=== PATIENT | male | born 1975 | race American Indian/Alaskan Native ===

== ENCOUNTER 2018-05-25 14:39 | Inpatient (IN) | payer SELFPAY ==
[2018-05-25 16:29] LABS: Hemoglobin 16.7 gm/dl (11.8-15.2); Mean Corpuscular HGB Conc 35 % (32-34); Mean Corpuscular Volume 90 fl (84-94); Platelet Count 445 K/mm3 (140-440); Red Blood Count 5.33 M/mm3 (3.65-5.03); Red Cell Distribution Width 16.3 % (13.2-15.2)
[2018-05-25 17:17] LABS: Alanine Aminotransferase 19 units/L (7-56); Albumin 4.4 g/dL (3.9-5); BUN/Creatinine Ratio 16; Blood Urea Nitrogen 16 mg/dL (9-20); Hemolysis Index 50
[2018-05-25] MEDS ORDERED: NACL 0.9% 1000 ML 1,000 ML IV ONE ×2 (19:27→23:36)
--- NOTE | 2018-05-25 19:29 | Emergency Department Report ---
<ADIEL QUEEN - Last Filed: 05/25/18 19:25> ED Abdominal Pain HPI - General Chief Complaint: Abdominal Pain Stated Complaint: STOMACH PAIN Time Seen by Provider: 05/25/18 18:17 Source: patient, EMS Mode of arrival: Wheelchair Limitations: No Limitations - History of Present Illness Initial Comments: 42-year-old male since emerge department complaining she generalized abdominal pain that has been off and on for the last one month but worse for the past 3 days. Reports nausea and vomiting for the last 2 days and reports no bowel movement in last 2-2 half days. Has noticed some some bloating but has been passing gas in the form of fluctuance and also belching. Reports no diarrhea. Tried to take some Maxifed, [id number], but still no bowel movement. No fever, chills, sweats, chest pain, palpitations. Reports no dysuria or abdomen, trauma. No pre-existing Topher or the medical problems to his knowledge. MD Complaint: abdominal pain Location: diffuse Radiation: RUQ, LLQ Severity: moderate Quality: aching Improves With: nothing Worsens With: nothing Associated Symptoms: nausea, constipation. denies: diarrhea, fever, chills, dysuria, hematemesis, hematochezia, melena, hematuria, anorexia - Related Data Allergies Allergy/AdvReac Type Severity Reaction Status Date / Time shellfish derived Allergy Anaphylaxis Verified 05/25/18 15:08 ED Review of Systems Constitutional: denies: chills, fever Eyes: denies: eye pain, eye discharge, vision change ENT: denies: ear pain, throat pain Respiratory: denies: cough, shortness of breath, wheezing Cardiovascular: denies: chest pain, palpitations Endocrine: no symptoms reported Gastrointestinal: abdominal pain, nausea, vomiting, constipation. denies: diarrhea, hematemesis, melena, hematochezia Genitourinary: denies: urgency, dysuria Musculoskeletal: denies: back pain, joint swelling, arthralgia Skin: denies: rash, lesions Neurological: denies: headache, weakness, paresthesias Psychiatric: denies: anxiety, depression Hematological/Lymphatic: denies: easy bleeding, easy bruising ED Past Medical Hx - Past Medical History Previous Medical History?: No - Surgical History Past Surgical History?: No - Social History Smoking Status: Former Smoker ED Physical Exam - General Limitations: No Limitations General appearance: alert, in no apparent distress - Head Head exam: Present: atraumatic, normocephalic - Eye Eye exam: Present: normal appearance, PERRL, EOMI Pupils: Present: normal accommodation - ENT ENT exam: Present: normal exam, mucous membranes moist - Neck Neck exam: Present: normal inspection - Respiratory Respiratory exam: Present: normal lung sounds bilaterally. Absent: respiratory distress, wheezes, rales, rhonchi, decreased breath sounds - Cardiovascular Cardiovascular Exam: Present: regular rate, normal rhythm. Absent: systolic m urmur, diastolic murmur, rubs, gallop - GI/Abdominal GI/Abdominal exam: Present: soft, normal bowel sounds - Rectal Rectal exam: Present: deferred - Extremities Exam Extremities exam: Present: normal inspection - Back Exam Back exam: Present: normal inspection, full ROM. Absent: CVA tenderness (R), CVA tenderness (L) - Neurological Exam Neurological exam: Present: alert, oriented X3, CN II-XII intact. Absent: normal gait - Psychiatric Psychiatric exam: Present: normal affect, normal mood - Skin Skin exam: Present: warm, dry, intact, normal color. Absent: rash ED Medical Decision Making - Lab Data Result diagrams: 05/25/18 16:19 05/25/18 16:19 ED Disposition Clinical Impression: Bowel obstruction, Abdominal pain, Nausea and vomiting Disposition: OP ADMIT IP TO THIS HOSP Condition: Stable <DEBRA SORIA - Last Filed: 05/26/18 00:32> ED Review of Systems ROS: Stated complaint: STOMACH PAIN Other details as noted in HPI ED Course Vital Signs 05/25/18 15:05 Temperature 97.9 F Pulse Rate 101 H Respiratory 20 Rate Blood Pressure 126/90 O2 Sat by Pulse 99 Oximetry - Reevaluation(s) Reevaluation #1: 05/26/18 00:30 I examined the patient. Patient presented with abdominal pain, nausea and vomiting. Patient also added that he's been having weight loss of approximately 20 pounds in the last 1 month's. He also stated that his been having alt ernating diarrhea and constipation. Patient already been discussed with Dr. Andre from surgery and Dr. Schultz from the medical team for admission. Patient has an NG tube placed. Patient stated that he is feeling better from the nausea and vomiting after the NG tube. We'll continue to follow. ED Medical Decision Making - Lab Data Result diagrams: 05/25/18 16:19 05/25/18 16:19 Critical Care Time: Yes Critical care time in (mins) excluding proc time.: 30 Critical care attestation.: If time is entered above; I have spent that time in minutes in the direct care of this critically ill patient, excluding procedure time. ED Disposition Is pt being admited?: Yes
[2018-05-25] MEDS ORDERED: ZOFRAN ONE (20:05)
[2018-05-25] MEDS ORDERED: BENADRYL IV STA (20:14)
[2018-05-25 20:16] LABS: Bacteria,Urine 1+ /HPF (Negative); Bilirubin,Urine MOD (Negative); Blood,Urine NEG (Negative); Color,Urine Amber (Yellow); Hyaline Casts,Urine 16 /LPF; Mucus,Urine 2+ /HPF
[2018-05-25 20:25] LABS: Ictotest,Urine Positive (Negative)
--- NOTE | 2018-05-25 22:11 | Cat Scan Report ---
FINAL REPORT EXAM: CT ABD AND PELVIS W CONTRAST HISTORY: LOWER ABD PAIN TECHNIQUE: CT abdomen and pelvis with intravenous contrast PRIORS: None. FINDINGS: No acute abnormality identified in the lung bases. No focal abnormality identified within the liver parenchyma. The spleen demonstrates normal size and attenuation. No pancreatic abnormalities seen. The kidneys demonstrate symmetric contrast enhancement. No evidence of hydronephrosis. The adrenal glands are unremarkable Abdominal aorta is normal in caliber. No pathologically enlarged lymph nodes are identified. No signs of free fluid or free air There is a marked small-bowel distention with fluid-filled loops measuring up to 6 centimeters in tra nsverse diameter. Definitive point of transition not identified however appears to be distal colon li shabbir ileum. Colon is nondistended. No pericolonic inflammatory change. Urinary bladder is unremarkable. IMPRESSION: Findings consistent with high-grade small bowel obstruction. Point of obstruction appears to be dista l small bowel
[2018-05-25] MEDS ORDERED: ZOFRAN IV STA (23:16)
[2018-05-25] MEDS ORDERED: ZOSYN/NS 4.5GM/100ML 4.5 GM/100 ML VIAL IV ONE (23:36)
--- NOTE | 2018-05-25 23:42 | History and Physical Report ---
History of Present Illness Date of examination: 05/25/18 History of present illness: 42-year-old man with no medical history comes emergency room with complaints of abdominal pain. Pain is in the right lower quadrant which started 2 months ago, intermittent every 5 minutes, sharp, intensity 8/10, no radiation, Marino identify exacerbating factors, better with pain medication given in the emergency room. Admits to nausea vomiting, no bowel movements Review of systems Constitutional: no weight loss, chills, fever Ears, eyes, nose, mouth and throat: no nasal congestion, no nasal discharge, no sinus pressure, no vision change, no red eye. Neck: No neck pain or rigidity. Cardiovascular: no palpitations, chest pain Respiratory: no cough, shortness of breath Gastrointestinal: no hematochezia Genitourinary : no frequency , no hematuria Musculoskeletal: no joint swelling or muscle ache Integumentary: no rash, no pruritis Neurological: no parathesias, no focal weakness Endocrine: no cold or heat intolerance, no polyuria or polydipsia Hematologic/Lymphatic: no easy bruising, no easy bleeding, no gland swelling Allergic/Immunologic: no urticaria, no angioedema. PAST MEDICAL HISTORY: None PAST SURGICAL HISTORY: None SOCIAL HISTORY: + alcohol, no drugs, +tobacco FAMILY HISTORY: Hypertension Medications and Allergies Allergies Allergy/AdvReac Type Severity Reaction Status Date / Time shellfish derived Allergy Anaphylaxis Verified 05/25/18 15:08 Home Medications Medication Instructions Recorded Confirmed Last Taken Type No Known Home Medications [No 05/26/18 05/26/18 Unknown History Reported Home Medications] Active Meds: Active Medications Sodium Chloride (Nacl 0.9% 1000 Ml) 1,000 mls @ 999 mls/hr IV BOLUS ONE Stop: 05/26/18 00:36 Piperacillin Sod/Tazobactam Sod (Zosyn/Ns 4.5gm/100ml) 4.5 gm in 100 mls @ 200 mls/hr IV ONCE ONE Stop: 05/26/18 00:05 Exam - Physical Exam Narrative exam: General Apperance: The patient lying in bed, breathing comfortable HEENT: Normocephalic, atraumatic. Pupils equally round and reactive to light, EOMI, no sclericterus or JVD or thyromegaly or nodule. , no carotid bruit, mucous membranes moist, no exudate or erythema Heart: S1-S2, regular is rhythm Lungs: Clear to auscultation bilaterally, breathing comfortable Abdomen: Positive bowel sounds, soft, tender right lower quadrant, no rebound, guarding nondistended, no organomegaly Extremities: No edema cyanosis clubbing Skin: no rash, nodule, warm and dry Neuro: cranial nerves 2-12 intact, speech is fluent, motor/sensory intact - Constitutional Vitals: Temp Pulse Resp BP Pulse Ox 97.9 F 101 H 20 126/90 99 05/25/18 15:05 05/25/18 15:05 05/25/18 15:05 05/25/18 15:05 05/25/18 15:05 Results - Labs CBC & Chem 7: 05/25/18 16:19 05/25/18 16:19 Labs: Abnormal lab results 05/25/18 05/25/18 Range/Units 16:19 16:19 WBC 15.2 H (4.5-11.0) K/mm3 RBC 5.33 H (3.65-5.03) M/mm3 Hgb 16.7 H (11.8-15.2) gm/dl Hct 48.0 H (35.5-45.6) % MCHC 35 H (32-34) % RDW 16.3 H (13.2-15.2) % Plt Count 445 H (140-440) K/mm3 Sodium 135 L (137-145) mmol/L Chloride 88.9 L (98-107) mmol/L Glucose 131 H (75-100) mg/dL Total Protein 9.2 H (6.3-8.2) g/dL Lipase 7 L (13-60) units/L - Imaging and Cardiology CT scan - abdomen: report reviewed CT scan - pelvis: report reviewed Assessment and Plan Assessment High-grade small bowel obstruction Plan Admit to medicine Start IV fluid, bowel rest, place ngt Start IV Zosyn, consult surgery IV morphine, DVT prophylaxis
[2018-05-25] MEDS ORDERED: TYLENOL PO PRN (23:52)
[2018-05-25] MEDS ORDERED: MORPHINE IV PRN (23:52)
[2018-05-26] MEDS ORDERED: ZOFRAN ONE ×3 (00:03→12:22)
[2018-05-26] MEDS ORDERED: NACL 0.9% 1000 ML 1,000 ML ONE (00:34)
[2018-05-26] MEDS ORDERED: ZOSYN/NS 4.5GM/100ML 4.5 GM/100 ML VIAL IV ONE (00:34)
--- NOTE | 2018-05-26 01:03 | XRay Report ---
FINAL REPORT EXAM: XR ABDOMEN 1V AP HISTORY: Confirm NGT placement COMPARISON: CT abdomen and pelvis from yesterday. FINDINGS: AP view of the upper abdomen obtained. Distal tip of the NG tube projects over the mid stomach. Gaseo us distention of bowel loops in the upper abdomen. IMPRESSION: Distal tip of the NG tube projects over the mid stomach.
[2018-05-26] MEDS: ZOFRAN IV PRN ×2 (01:53→21:05)
[2018-05-26] MEDS: NACL 0.9% 1000 ML 1,000 ML IV SCH ×2 (02:03→18:30)
[2018-05-26] MEDS: ZOSYN/NS 4.5GM/100ML 4.5 GM/100 ML VIAL IV SCH ×3 (07:25→21:08)
[2018-05-26] MEDS ORDERED: NACL 0.9% 1000 ML 1,000 ML IV SCH (08:00)
--- NOTE | 2018-05-26 08:47 | Consultation ---
History of Present Illness Consult date: 05/26/18 Reason for consult: abdominal pain Requesting physician: ESME COTTON Chief complaint: abdominal pain - History of present illness History of present illness: 42yo, otherwise healthy, male presents with a 2 day history of no bowel movements and significant abdominal pain. He reports that he began having issues about 2 months ago. His bowel movements began to change to a more watery consistency. He has lost 20 to 25 pounds during this time. He is developed nausea and vomiting. Appetite is decreased. He denies any history of abdominal infections or surgeries. Denies any blood in stools. May have had one black stool. Denies any personal or family history of cancer. Past History Past Medical History: No medical history Past Surgical History: No surgical history Social history: smoking (1pk QOD), alcohol abuse (2-3 shots QOD). denies: prescription drug abuse, IV drug use Family history: no significant family history Medications and Allergies Allergies Allergy/AdvReac Type Severity Reaction Status Date / Time shellfish derived Allergy Anaphylaxis Verified 05/25/18 15:08 Home Medications Medication Instructions Recorded Confirmed Last Taken Type RX: No Known Home Medications [No 05/26/18 05/26/18 Unknown History Reported Home Medications] Active Meds: Active Medications Acetaminophen (Tylenol) 650 mg PO Q4H PRN PRN Reason: Pain MILD(1-3)/Fever >100.5/HINSON Enoxaparin Sodium (Lovenox) 40 mg SUB-Q QDAY@1000 KARSON Sodium Chloride (Nacl 0.9% 1000 Ml) 1,000 mls @ 125 mls/hr IV DIRECT KARSON Last Admin: 05/26/18 02:03 Dose: 125 mls/hr Documented by: Piperacillin Sod/Tazobactam Sod (Zosyn/Ns 4.5gm/100ml) 4.5 gm in 100 mls @ 200 mls/hr IV Q8HR KARSON; Protocol Last Admin: 05/26/18 07:25 Dose: 200 mls/hr Documented by: Sodium Chloride (Nacl 0.9% 1000 Ml) 1,000 mls @ 0 mls/hr IV ONCE KARSON Stop: 05/27/18 08:01 Morphine Sulfate (Morphine) 2 mg IV Q4H PRN PRN Reason: Pain, Moderate (4-6) Last Admin: 05/26/18 01:53 Dose: 2 mg Documented by: Ondansetron HCl (Zofran) 4 mg IV Q4H PRN PRN Reason: Nausea And Vomiting Last Admin: 05/26/18 01:53 Dose: 4 mg Documented by: Sodium Chloride (Sodium Chloride Flush Syringe 10 Ml) 10 ml IV BID KARSON Sodium Chloride (Sodium Chloride Flush Syringe 10 Ml) 10 ml IV PRN PRN PRN Reason: LINE FLUSH Review of Systems - Constitutional weight loss, chronic pain, no fever, no chills - Cardiovascular no chest pain - Respiratory no cough, no shortness of breath - Gastrointestinal abdominal pain, nausea, vomiting, change in bowel habits, loss of appetite, dyspepsia/bloating, no hematemesis, no coffee ground emesis, no BRBPR, no melena, no hematochezia - Genitourinary no dysuria - Muskuloskeletal no low back pain - Integumentary no rash, no sores, no wounds Exam Vital Signs Temp Pulse Resp BP Pulse Ox 97.9 F 101 H 20 126/90 99 05/25/18 15:05 05/25/18 15:05 05/25/18 15:05 05/25/18 15:05 05/25/18 15:05 - General physical appearance Positive: no distress, no pain, other (pleasant) - Eyes Positive: PERRL, normal occular movement. Negative: icteric - Respiratory Positive: normal expansion, normal respiratory effort, clear to auscultation - Cardiovascular Rhythm: regular - Abdomen Abdomen: Present: soft, bowel sounds hypoactive, distended. Absent: tender, masses, rebound, guarding, rigid, wound, surgical scars - Integumentary no rash, no growths, no abnormal pigmentation - Neurologic Neurologic: alert and oriented to time, place and person, motor strength and sensation are grossly intact - Musculoskeletal other (thin extremities) - Psychiatric Psychiatric: appropriate mood/affect, intact judgment & insight Results - Labs 05/25/18 16:19 05/25/18 16:19 Abnormal lab results 05/25/18 05/25/18 Range/Units 16:19 16:19 WBC 15.2 H (4.5-11.0) K/mm3 RBC 5.33 H (3.65-5.03) M/mm3 Hgb 16.7 H (11.8-15.2) gm/dl Hct 48.0 H (35.5-45.6) % MCHC 35 H (32-34) % RDW 16.3 H (13.2-15.2) % Plt Count 445 H (140-440) K/mm3 Sodium 135 L (137-145) mmol/L Chloride 88.9 L (98-107) mmol/L Glucose 131 H (75-100) mg/dL Total Protein 9.2 H (6.3-8.2) g/dL Lipase 7 L (13-60) units/L Diabetes panel 05/25/18 Range/Units 16:19 Sodium 135 L (137-145) mmol/L Potassium 3.8 (3.6-5.0) mmol/L Chloride 88.9 L (98-107) mmol/L Carbon Dioxide 29 (22-30) mmol/L BUN 16 (9-20) mg/dL Creatinine 1.0 (0.8-1.5) mg/dL Glucose 131 H (75-100) mg/dL Calcium 10.0 (8.4-10.2) mg/dL AST 20 (5-40) units/L ALT 19 (7-56) units/L Alkaline Phosphatase 107 (35-129) units/L Total Protein 9.2 H (6.3-8.2) g/dL Albumin 4.4 (3.9-5) g/dL Calcium panel 05/25/18 Range/Units 16:19 Calcium 10.0 (8.4-10.2) mg/dL Albumin 4.4 (3.9-5) g/dL Pituitary panel 05/25/18 Range/Units 16:19 Sodium 135 L (137-145) mmol/L Potassium 3.8 (3.6-5.0) mmol/L Chloride 88.9 L (98-107) mmol/L Carbon Dioxide 29 (22-30) mmol/L BUN 16 (9-20) mg/dL Creatinine 1.0 (0.8-1.5) mg/dL Glucose 131 H (75-100) mg/dL Calcium 10.0 (8.4-10.2) mg/dL Adrenal panel 05/25/18 Range/Units 16:19 Sodium 135 L (137-145) mmol/L Potassium 3.8 (3.6-5.0) mmol/L Chloride 88.9 L (98-107) mmol/L Carbon Dioxide 29 (22-30) mmol/L BUN 16 (9-20) mg/dL Creatinine 1.0 (0.8-1.5) mg/dL Glucose 131 H (75-100) mg/dL Calcium 10.0 (8.4-10.2) mg/dL Total Bilirubin 0.80 (0.1-1.2) mg/dL AST 20 (5-40) units/L ALT 19 (7-56) units/L Alkaline Phosphatase 107 (35-129) units/L Total Protein 9.2 H (6.3-8.2) g/dL Albumin 4.4 (3.9-5) g/dL - Imaging CT scan - abdomen: report reviewed, image reviewed CT scan - pelvis: report reviewed, image reviewed Assessment and Plan - Patient Problems (1) Bowel obstruction Current Visit: Yes Status: Acute Qualifiers: Intestinal obstruction type: other intestinal obstruction Intestinal obstruction extent: partial Qualified Code(s): K56.690 - Other partial intestinal obstruction Plan to address problem: Patient is stable. Despite the CT not showing any specific cause for an obstru ction, his history is very concerning for a malignancy causing this problem. I believe his only viable option at this point is an exploratory laparotomy. Patient would like to proceed. Procedure, risks, benefits were discussed. All questions were answered. Consent was obtained. We will proceed to surgery today. time=30min
[2018-05-26] MEDS ORDERED: DIPRIVAN 10 MG/ML IV ONE (09:15)
[2018-05-26] MEDS ORDERED: SUBLIMAZE ONE (09:15)
[2018-05-26] MEDS ORDERED: XYLOCAINE MPF 2% ONE (09:16)
[2018-05-26] MEDS ORDERED: ZEMURON IV ONE (09:17)
[2018-05-26] MEDS ORDERED: QUELICIN ONE (09:22)
--- NOTE | 2018-05-26 09:27 | Progress Note ---
Assessment and Plan Assessment and plan: per admission documentation: 42-year-old man with no medical history comes emergency room with complaints of abdominal pain. Pain is in the right lower quadrant which started 2 months ago, intermittent every 5 minutes, sharp, intensity 8/10, no radiation, he reports some bloating but has fluctuance and also belching. He reported assocaited nausea and vomiting in the last two days but no BM for the last 2 and half days Cannot identify exacerbating factors, better with pain medication given in the emergency room. Admits to nausea vomiting, no bowel movements SBO SECONDary to Tumor Leukocytosis- possible reactive. Peritoneal Irritation. Mass. Plan Patient proceeded for surgery today noted to have a tumor causing obstruction S/P ex lap, right hemicolectomy with primary anastomosis, partial omentectomy, partial sigmoid colectomy Pathology pending. Pain control DVT/GI prophy Discussed plan of care with family and patient. History Interval history: Patient seen and examined, for surgery this am. Hospitalist Physical - Physical exam Narrative exam: General Apperance: The patient lying in bed, HEENT: Normocephalic, atraumatic. Pupils equally round and reactive to light, EOMI, no sclericterus or JVD or thyromegaly or nodule. , no carotid bruit, mucous membranes moist, no exudate or erythema Heart: S1-S2, regular is rhythm Lungs: Clear to auscultation bilaterally, breathing comfortable Abdomen: Positive bowel sounds, soft, tender right lower quadrant, no rebound, g uarding nondistended, no organomegaly Extremities: No edema cyanosis clubbing Skin: no rash, nodule, warm and dry Neuro: cranial nerves 2-12 intact, speech is fluent, motor/sensory intact - Constitutional Vitals: Temp Pulse Resp BP Pulse Ox 98.0 F 92 H 18 118/85 96 05/26/18 06:57 05/26/18 06:57 05/26/18 06:57 05/26/18 06:57 05/26/18 08:21 Results - Labs CBC & Chem 7: 05/26/18 15:32 05/26/18 15:32 Labs: Laboratory Last Values WBC 15.2 K/mm3 (4.5-11.0) H 05/25/18 16:19 RBC 5.33 M/mm3 (3.65-5.03) H 05/25/18 16:19 Hgb 16.7 gm/dl (11.8-15.2) H 05/25/18 16:19 Hct 48.0 % (35.5-45.6) H 05/25/18 16:19 MCV 90 fl (84-94) 05/25/18 16:19 MCH 31 pg (28-32) 05/25/18 16:19 MCHC 35 % (32-34) H 05/25/18 16:19 RDW 16.3 % (13.2-15.2) H 05/25/18 16:19 Plt Count 445 K/mm3 (140-440) H 05/25/18 16:19 Sodium 135 mmol/L (137-145) L 05/25/18 16:19 Potassium 3.8 mmol/L (3.6-5.0) 05/25/18 16:19 Chloride 88.9 mmol/L (98-107) L 05/25/18 16:19 Carbon Dioxide 29 mmol/L (22-30) 05/25/18 16:19 Anion Gap 21 mmol/L 05/25/18 16:19 BUN 16 mg/dL (9-20) 05/25/18 16:19 Creatinine 1.0 mg/dL (0.8-1.5) 05/25/18 16:19 Estimated GFR > 60 ml/min 05/25/18 16:19 BUN/Creatinine Ratio 16 % 05/25/18 16:19 Glucose 131 mg/dL (75-100) H 05/25/18 16:19 Calcium 10.0 mg/dL (8.4-10.2) 05/25/18 16:19 Total Bilirubin 0.80 mg/dL (0.1-1.2) 05/25/18 16:19 AST 20 units/L (5-40) 05/25/18 16:19 ALT 19 units/L (7-56) 05/25/18 16:19 Alkaline Phosphatase 107 units/L (35-129) 05/25/18 16:19 Total Protein 9.2 g/dL (6.3-8.2) H 05/25/18 16:19 Albumin 4.4 g/dL (3.9-5) 05/25/18 16:19 Albumin/Globulin Ratio 0.9 % 05/25/18 16:19 Lipase 7 units/L (13-60) L 05/25/18 16:19 Urine Color Mary (Yellow) 05/25/18 19:51 Urine Turbidity Clear (Clear) 05/25/18 19:51 Urine pH 5.0 (5.0-7.0) 05/25/18 19:51 Ur Specific [place] 1.030 (1.003-1.030) 05/25/18 19:51 Urine Protein 100 mg/dl mg/dL (Negative) 05/25/18 19:51 Urine Glucose (UA) Neg mg/dL (Negative) 05/25/18 19:51 Urine Ketones 80 mg/dL (Negative) 05/25/18 19:51 Urine Blood Neg (Negative) 05/25/18 19:51 Urine Nitrite Neg (Negative) 05/25/18 19:51 Urine Bilirubin Mod (Negative) 05/25/18 19:51 Urine Ictotest Positive (Negative) 05/25/18 19:51 Urine Urobilinogen 2.0 mg/dL (<2.0) 05/25/18 19:51 Ur Leukocyte Esterase Neg (Negative) 05/25/18 19:51 Urine WBC (Auto) 2.0 /HPF (0.0-6.0) 05/25/18 19:51 Urine RBC (Auto) 6.0 /HPF (0.0-6.0) 05/25/18 19:51 U Epithel Cells (Auto) < 1.0 /HPF (0-13.0) 05/25/18 19:51 Urine Bacteria (Auto) 1+ /HPF (Negative) 05/25/18 19:51 Hyaline Casts 16 /LPF 05/25/18 19:51 Urine Mucus 2+ /HPF 05/25/18 19:51
[2018-05-26] MEDS: SODIUM CHLORIDE FLUSH SYRINGE 10 ML IV SCH ×2 (09:29→21:08)
--- NOTE | 2018-05-26 09:43 | XRay Report ---
ABDOMEN, 2 views: History: Constipation, abdominal pain. Compared to the CT of abdomen and pelvis performed 05/25/18. A nasogastric tube projects over the expected position of the stomach. Multiple dilated loops of small bowel with large air-fluid levels are again identified concerning for a distal small bowel obstruction. Trace gas is identified in the colon. No obvious free air or pathologic calcifications. The lung bases are clear. IMPRESSION: Distal small bowel obstruction. No significant change since yesterday's exam.
--- NOTE | 2018-05-26 09:44 | XRay Report ---
ROUTINE CHEST, TWO VIEWS: HISTORY: Evaluate for metastasis from presumed GI cancer. The trachea, heart, mediastinal contour, lung rojas and bony thorax are unremarkable. A nasogastric tube is in position. IMPRESSION: Unremarkable chest x-ray.
[2018-05-26] MEDS ORDERED: NEO SYNEPHRINE/NS Syringe(OR USE) IV ONE (09:49)
[2018-05-26] MEDS ORDERED: DECADRON ONE (09:50)
[2018-05-26] MEDS ORDERED: LOVENOX SUB-Q SCH (10:00)
[2018-05-26] MEDS ORDERED: DILAUDID IV PRN (10:04)
--- NOTE | 2018-05-26 10:04 | Anesthesia Consultation ---
Anesthesia Consult and Med Hx Date of service: 05/26/18 - Airway Anesthetic Teeth Evaluation: Good ROM Head & Neck: Adequate Mental/Hyoid Distance: Adequate Mallampati Class: Class II Intubation Access Assessment: Probably Good - Pulmonary Exam CTA: Yes - Cardiac Exam Cardiac Exam: RRR - Pre-Operative Health Status ASA Pre-Surgery Classification: ASA3, Emergency Proposed Anesthetic Plan: General - Pulmonary Hx Smoking: Yes Hx Asthma: No Hx Respiratory Symptoms: No COPD: No - Cardiovascular System Hx Hypertension: No Hx Heart Attack/AMI: No - Central Nervous System Hx Seizures: No CVA: No - Gastrointestinal Hx Gastroesophageal Reflux Disease: Yes - Endocrine Hx Renal Disease: No Hx Liver Disease: No Hx Insulin Dependent Diabetes: No Hx Non-Insulin Dependent Diabetes: No Hx Thyroid Disease: No - Hematic Hx Anemia: No - Other Systems Hx Obesity: No - Additional Comments Anesthesia Medical History Comments: Presented with abdominal pain, nausea, vomiting x2 days. SBO noted on CT. Now scheduled for emergent ex-lap. HD stable on floor. No significant metabolic derrangement. NGT in place with bilious drainage. Plan GETA/RSI. Possible post-op ventilation/ICU admission pending intraoperative course.
--- NOTE | 2018-05-26 10:04 | Anesthesia Day of Surgery ---
Anesthesia Day of Surgery - Day of Surgery Patient Examined: Yes Patient H&P Reviewed: Yes Patient is NPO: Yes (SBO with NGT in situ)
[2018-05-26] MEDS ORDERED: ANCEF ONE ×2 (10:05)
[2018-05-26] MEDS: LOVENOX SUB-Q SCH (10:36)
[2018-05-26] MEDS ORDERED: NACL 0.9% IR ONE (12:00)
--- NOTE | 2018-05-26 12:33 | Post Operative Note ---
Date of procedure: 05/26/18 (Dictation: [id number]) Pre-op diagnosis: small bowel obstruction Post-op diagnosis: other (bowel obstruction due to tumor) Findings: significant small bowel obstruction throughout. hard mass noted at ileocecal valve. Procedure: ex lap right hemicolectomy with primary anastomosis partial omentectomy partial sigmoid colectomy Anesthesia: GETA Surgeon: LEE WATT Services Rep: KATARINA LIRIANO Estimated blood loss: other (200cc) Pathology: list (right colon, portion of omentum, portion of sigmoid colon, portion of ileum.) Specimen disposition: to lab Condition: stable Disposition: PACU
[2018-05-26] MEDS ORDERED: DILAUDID ONE (12:55)
[2018-05-26] MEDS ORDERED: LACTATED RINGERS 1,000 ML ONE (13:21)
[2018-05-26] MEDS: MORPHINE IV PRN ×4 (14:08→23:58)
[2018-05-26] MEDS: CHLORASEPTIC MM PRN (14:11)
--- NOTE | 2018-05-26 14:36 | Post Anesthesia Evaluation ---
- Post Anesthesia Evaluation Patient Participated: Yes Airway Patent: Yes Stable Respiratory Function: Yes Nausea/Vomiting: No Temp > 96.8F: Yes Pain Manageable: Yes Adequeate Hydration: Yes Anesthesia Complications: No Block Receding Appropriately: Not Applicable
[2018-05-26 15:47] LABS: Hemoglobin 15.2 gm/dl (11.8-15.2); Mean Corpuscular HGB Conc 32 % (32-34); Mean Corpuscular Volume 94 fl (84-94); Platelet Count 369 K/mm3 (140-440); Red Blood Count 5.02 M/mm3 (3.65-5.03); Red Cell Distribution Width 16.7 % (13.2-15.2)
[2018-05-26] MEDS ORDERED: NACL 0.9% 1000 ML 1,000 ML IV ONE (15:51)
[2018-05-26 15:58] LABS: BUN/Creatinine Ratio 17; Blood Urea Nitrogen 15 mg/dL (9-20); Hemolysis Index 11
--- NOTE | 2018-05-26 16:49 | Event Note ---
Date: 05/26/18 Routine post-op check. Pt reports that he is doing well. Has no needs. Bolus given for slightly saleem urine. VS other ok. Pt stable. CPM.
--- NOTE | 2018-05-26 17:05 | Operative Report ---
PREOPERATIVE DIAGNOSIS: Small-bowel obstruction. 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 PROCEDURE: 1. Exploratory laparotomy. 2. Right hemicolectomy with primary anastomosis. 3. Partial omentectomy. 4. Partial sigmoid resection. ATTENDING PHYSICIAN: Shantal Andre MD. SCLEROSCOPE TESTER: Dr. Gutierrez. ANESTHESIA: General. ESTIMATED BLOOD LOSS: Approximately 200 mL. FLUIDS: 2 liters crystalloid. URINE OUTPUT: 100 mL. FINDINGS: Very hard firm mass in the region of the ileocecal valve. There were dense adhesions around that area to the omentum and involving the portion of the sigmoid colon, some enlarged lymph nodes were identified in the mesentery of the small bowel and right colon. No other intra-abdominal abnormalities were identified. SPECIMEN: Right colon, portion of distal ileum, and sigmoid colon and portion of omentum. DRAINS: None. COMPLICATIONS: Stable transport to Recovery. INDICATIONS: This is a 42-year-old male, who presented with significant pain and swelling in the abdomen. CT scan showed evidence of a significant small-bowel obstruction. His history was very concerning for cancer. As a cause of the obstruction the patient says to be in need for exploratory laparotomy. Procedure, risks, benefits were explained to the patient. Risks included but were not limited to infection, bleeding, pain, injury to surrounding structures, possible need for further procedures in the future, possible ostomy, etc. The patient understood and consented. OPERATIVE NOTE: The patient was brought to the operating room and placed on table in supine position. After adequate general anesthesia was established, the patient was prepped and draped in usual sterile fashion. Antibiotics have been administered prior to the start of the case. SCDs were in place. Time-out was called. I began by making a sharp midline incision. We entered the peritoneal cavity safely. Incision was extended as necessary. We did some more inferiorly as our main problem appeared to be in the right lower quadrant. The small bowel was massively dilated. We eviscerated all small bowel to examine the surrounding organs, the small bowel itself other than being dilated appeared normal. We immediately identified a firm mass in the region of the ileocecal valve, which was the cause of our blockage. The right colon and rest of the colon were decompressed. Examination of the rest of the colon revealed no obvious masses. The sigmoid colon was attached to the mass and inflammatory reaction at the ileocecal valve, but no other masses were identified. Liver was normal. Stomach was normal. Spleen was normal. There was nothing identified in the retroperitoneum as a concern for malignancy. At this point, because the bowel was so dilated we were going to be unable to adequately do a right hemicolectomy as I felt this would be most appropriate with the mass sitting in what appeared to be the cecum or at least the ileocecal valve region. Therefore, we elected to decompress the small bowel. I elected to make a small enterotomy in the region of the small bowel that we were going to resect anyway. Pursestring suture was placed around where we are going to make the enterotomy. This was subsequently done. Please note we completely toweled off the surrounding areas, we knew that there would be some spillage. We placed a suction tip into the opening that was made and we evacuated thick yellow contents that also had debris of food in there suggested that the fluid had been sitting for a long time. We drained as much as we could; however, there was still a moderate amount of fluid left. We ended up dividing the bowel with a VIVIEN stapler using a blue load to start to be able to pack the small bowel towards the left side, so we can do the right hemicolectomy. We did use a pursestring suture to close the opening that we had made. As we still had significant distention, we thought it would be best to go ahead and open up a portion of the staple line in the portion of the small bowel that was remaining and then empty everything into a bucket, which would be easier than trying to suck it out as though the food debris was getting stuck in the suction device. Again, we took great care to toweled off everything and then drain everything in the bucket. This helped significantly to decompress the bowel. We were able to milk a large amount of contents into the bucket. We then used a 3-0 silk suture to close the opening that was made at the staple line. With moist lap sponges we packed the small bowel towards the left side of the abdomen and then proceeded with the case. We mobilized the right colon going from lateral to medial, we went along Toldt's white line to mobilize the bowel. We had a very nice clean dissection and were able to mobilize the right colon without violating the retroperitoneum. We could see the ureter through the retroperitoneal covering. It was not exposed or damaged in any way. We took down the hepatic flexure by slowly going around that area with a combination of electrocautery and the LigaSure device. Once we did as much as we could along the right side we then turned our attention to the right lower quadrant where the mass was. We had adhesions to the omentum. There was a portion of the omentum that did appear irregular. Therefore, we left about 2 inches of the omentum attached to the mass and then divided the omentum with the LigaSure device and area that appeared more normal. Then we realized at this point that a portion of the omentum and nearby bowel was adhered to the edge of the sigmoid colon. There did not appear to be any masses within the sigmoid itself; however, the edge was densely adhered. As this area was firm we thought the best thing to do at this point would be to staple off a portion of the sigmoid colon, taking great care to make sure that the lumen was still widely patent, not compromised, but we thought this would be better than simply dividing the two structures and potentially leaving some malignancy tissue behind. I think this is more likely going to be an inflammatory reactive type process as opposed to malignancy; however, we wanted to make sure that we got as much of the malignancy out as possible in case it had extended out. We decided not to do a formal sigmoid colectomy as we did not know that this was tumor end. I wanted to have the option of prepping the bowel if we were going to do that. I did not feel as though we compromised his care at all. If we do find in the pathology report that the cancer does extend to the margin of the sigmoid tissue that was resected. Then, I will talk to the patient about a formal sigmoid colectomy. Continuing on we mobilized the right colon to the midline. We had a very nice dissection plane. We then entered the lesser sac and mobilized the colon from that aspect. We identified the middle colic vessels and identified where we would divide it on the right branch. We dissected out the transverse colon at that level and divided it with a VIVIEN stapler using a blue load. We excised a portion of the associated omentum and passed it off the table. We then took down the mesentery. We clearly identified the duodenum. It was clearly away from where we were dissecting and we tried to stay as low as possible going across the mesentery with the LigaSure device where the ileocolic vessels we cauterized that area twice before dividing it. We had a very nice clean dissection. We got some enlarged lymph nodes and we were nearly on top of the retroperitoneum. Therefore, I feel as though we had a very good amount of mesentery to have enough lymph nodes for adequate evaluation. We thoroughly irrigated out the abdomen again. We had done so previously after we were done decompressing the bowel as we did have small amount of spillage as expected. I cleaned the area multiple times to make sure there was no small particulate matter left. I wanted to make sure that we cleaned at each step to minimize any risk of infection. Once the cleaning was done, we then lined up the small bowel and the remainder of the transverse colon in an isoperistaltic fashion. We lined them up with 3-0 silk sutures and then made an anastomosis with a VIVIEN stapler using a blue load. The remaining enterotomy was closed with a TA stapler. We oversewed the TA staple line with interrupted 3-0 silk sutures with Lembert style stitches. We had a large opening between the two limbs of the bowel. We discussed perhaps closing the mesenteric defect, but my concern as we were very close to where the ligament of Treitz and the duodenojejunal junction was that we may potentially compromise or injure the bowel and with a large opening it is less likely that we will have any obstruction issues. If the small bowel were to proceed through we laid the anastomosis on the right side of the abdomen as it laid very nicely there and covered it with omentum. We washed everything out again, checked for hemostasis. There were some points of bleeding on the sigmoid staple line that we oversewed with 3-0 silk and had good hemostasis. We checked the lumen again, it appeared to be widely patent after irrigation and suctioning was done, we then laid the omentum over the small bowel and closed the fascia with a running #1 looped PDS suture. Subcutaneous tissue was cleaned and skin was closed with jose. The patient tolerated procedure well. There were no complications. All counts were correct at the end of the case. JOB# [id number] ZAHEER/KELSIE DE OLIVEIRA
[2018-05-26 17:23] LABS: Basophils % (Manual) 0 % (0.0-1.8); Eosinophils % (Manual) 0 % (0.0-4.3); Total Cells Counted 100
[2018-05-26 17:24] LABS: RBC Morphology Normal
[2018-05-27] MEDS: MORPHINE IV PRN ×6 (02:41→19:58)
[2018-05-27] MEDS: ZOFRAN IV PRN ×2 (02:42→16:32)
[2018-05-27] MEDS: NACL 0.9% 1000 ML 1,000 ML IV SCH (02:59)
[2018-05-27] MEDS: SODIUM CHLORIDE FLUSH SYRINGE 10 ML IV PRN ×2 (03:05→20:05)
[2018-05-27 04:46] LABS: Hematocrit 43.1 % (35.5-45.6); Hemoglobin 14.1 gm/dl (11.8-15.2); Mean Corpuscular HGB Conc 33 % (32-34); Mean Corpuscular Volume 94 fl (84-94); Red Blood Count 4.61 M/mm3 (3.65-5.03); Red Cell Distribution Width 16.5 % (13.2-15.2)
[2018-05-27 04:47] LABS: Platelet Count 319 K/mm3 (140-440)
[2018-05-27 05:05] LABS: BUN/Creatinine Ratio 12; Blood Urea Nitrogen 13 mg/dL (9-20); Calcium 8.1 mg/dL (8.4-10.2); Hemolysis Index 2
[2018-05-27] MEDS: ZOSYN/NS 4.5GM/100ML 4.5 GM/100 ML VIAL IV SCH (06:00)
[2018-05-27] MEDS: LOVENOX SUB-Q SCH (09:37)
[2018-05-27] MEDS: SODIUM CHLORIDE FLUSH SYRINGE 10 ML IV SCH (09:37)
[2018-05-27] MEDS ORDERED: LACTATED RINGERS 1,000 ML IV ONE (10:30)
--- NOTE | 2018-05-27 10:31 | Progress Note ---
Assessment and Plan - Patient Problems (1) Bowel obstruction Current Visit: Yes Status: Acute Qualifiers: Intestinal obstruction type: other intestinal obstruction Intestinal obstruction extent: partial Qualified Code(s): K56.690 - Other partial intestinal obstruction Plan to address problem: Pt stable. s/p right hemicolectomy with primary anastomosis - 05/26/18 - POD#1. Pt doing well. No concerns at this time. - ambulate - IS - change to maintenance IVF - IVF bolus this AM - start toradol - may have ice chips sparingly Please call with questions. Subjective Date of service: 05/27/18 Patient Reports: Positive: feels better, other ("soreness" across abdomen). Negative: nausea, vomiting Objective Vital Signs - 12hr 05/27/18 05/27/18 05/27/18 00:05 00:07 01:48 Temperature Pulse Rate 102 H Respiratory 16 Rate Respiratory 16 Rate [abdomen] Blood Pressure Blood Pressure 128/84 [Right] O2 Sat by Pulse 100 99 Oximetry 05/27/18 05/27/18 05/27/18 03:09 07:35 07:41 Temperature 98.2 F 98.0 F 98.0 F Pulse Rate 97 H 77 80 Respiratory 16 10 L 10 L Rate Respiratory Rate [abdomen] Blood Pressure 119/72 Blood Pressure 120/81 119/72 [Right] O2 Sat by Pulse 100 100 100 Oximetry 05/27/18 09:38 Temperature Pulse Rate Respiratory 14 Rate Respiratory Rate [abdomen] Blood Pressure Blood Pressure [Right] O2 Sat by Pulse Oximetry - General physical appearance no distress, no pain - Eyes normal occular movement - Respiratory normal expansion, normal respiratory effort - Abdomen soft, bowel sounds hypoactive, not distended, not guarding, not rigid, other (dressing dry. NGT output bilious) - Integumentary no rash, no growths, no abnormal pigmentation - Psychiatric oriented to time, oriented to person, oriented to place, speech is normal, memory intact - Labs 05/27/18 04:20 05/27/18 04:20 Diabetes panel 05/26/18 05/27/18 Range/Units 15:32 04:20 Sodium 140 144 (137-145) mmol/L Potassium 3.7 4.4 (3.6-5.0) mmol/L Chloride 103.1 105.8 (98-107) mmol/L Carbon Dioxide 27 29 (22-30) mmol/L BUN 15 13 (9-20) mg/dL Creatinine 0.9 1.1 (0.8-1.5) mg/dL Glucose 126 H 114 H (75-100) mg/dL Calcium 8.0 L D 8.1 L (8.4-10.2) mg/dL Calcium panel 05/26/18 05/27/18 Range/Units 15:32 04:20 Calcium 8.0 L D 8.1 L (8.4-10.2) mg/dL Pituitary panel 05/26/18 05/27/18 Range/Units 15:32 04:20 Sodium 140 144 (137-145) mmol/L Potassium 3.7 4.4 (3.6-5.0) mmol/L Chloride 103.1 105.8 (98-107) mmol/L Carbon Dioxide 27 29 (22-30) mmol/L BUN 15 13 (9-20) mg/dL Creatinine 0.9 1.1 (0.8-1.5) mg/dL Glucose 126 H 114 H (75-100) mg/dL Calcium 8.0 L D 8.1 L (8.4-10.2) mg/dL Adrenal panel 05/26/18 05/27/18 Range/Units 15:32 04:20 Sodium 140 144 (137-145) mmol/L Potassium 3.7 4.4 (3.6-5.0) mmol/L Chloride 103.1 105.8 (98-107) mmol/L Carbon Dioxide 27 29 (22-30) mmol/L BUN 15 13 (9-20) mg/dL Creatinine 0.9 1.1 (0.8-1.5) mg/dL Glucose 126 H 114 H (75-100) mg/dL Calcium 8.0 L D 8.1 L (8.4-10.2) mg/dL
[2018-05-27] MEDS: TORADOL IV SCH ×2 (12:18→20:04)
[2018-05-27] MEDS: D5W/0.45% NACL/KCL 20 MEQ 20 MEQ/1,000 ML BAG IV SCH (12:24)
--- NOTE | 2018-05-27 16:35 | Progress Note ---
Assessment and Plan Assessment and plan: per admission documentation: 42-year-old man with no medical history comes emergency room with complaints of abdominal pain. Pain is in the right lower quadrant which started 2 months ago, intermittent every 5 minutes, sharp, intensity 8/10, no radiation, he reports some bloating but has fluctuance and also belching. He reported assocaited nausea and vomiting in the last two days but no BM for the last 2 and half days Cannot identify exacerbating factors, better with pain medication given in the emergency room. Admits to nausea vomiting, no bowel movements SBO Secondary to Tumor- POD #1 S/P right hemicolectomy with primary anastomosis Leukocytosis- possible reactive. Peritoneal Irritation. Mass. Plan Patient proceeded for surgery today noted to have a tumor causing obstruction S/P ex lap, right hemicolectomy with primary anastomosis, partial omentectomy, partial sigmoid colectomy Pathology pending. Toradol for pain control Incentive spirometer Pain control DVT/GI prophy Discussed plan of care with family and patient. History Interval history: Patient seen and examined, s/p surgery. Patient reports improvement with his symptom. ambulating today. Hospitalist Physical - Physical exam Narrative exam: General Appearance: The patient lying in bed, HEENT: Normocephalic, atraumatic. Pupils equally round and reactive to light, EOMI, no sclericterus or JVD or thyromegaly or nodule. no carotid bruit, mucous membranes moist, no exudate or erythema. Heart: S1-S2, regular is rhythm Lungs: Clear to auscultation bilaterally, breathing comfortable Abdomen: Tender at surgical site. Positive bowel sound. Extremities: No edema cyanosis clubbing Skin: no rash, nodule, warm and dry Neuro: cranial nerves 2-12 intact, speech is fluent, motor/sensory intact - Constitutional Vitals: Temp Pulse Resp BP Pulse Ox 97.8 F 81 18 118/70 95 05/27/18 15:59 05/27/18 15:59 05/27/18 15:59 05/27/18 15:59 05/27/18 15:59 Results - Labs CBC & Chem 7: 05/27/18 04:20 05/27/18 04:20 Labs: Laboratory Last Values WBC 14.7 K/mm3 (4.5-11.0) H 05/27/18 04:20 RBC 4.61 M/mm3 (3.65-5.03) 05/27/18 04:20 Hgb 14.1 gm/dl (11.8-15.2) 05/27/18 04:20 Hct 43.1 % (35.5-45.6) 05/27/18 04:20 MCV 94 fl (84-94) 05/27/18 04:20 MCH 31 pg (28-32) 05/27/18 04:20 MCHC 33 % (32-34) 05/27/18 04:20 RDW 16.5 % (13.2-15.2) H 05/27/18 04:20 Plt Count 319 K/mm3 (140-440) 05/27/18 04:20 Add Manual Diff Complete 05/26/18 15:32 Total Counted 100 05/26/18 15:32 Seg Neutrophils % Uranium Processing Supervisor 05/26/18 15:32 Seg Neuts % (Manual) 91.0 % (40.0-70.0) H 05/26/18 15:32 Band Neutrophils % 0 % 05/26/18 15:32 Lymphocytes % (Manual) 5.0 % (13.4-35.0) L 05/26/18 15:32 Reactive Lymphs % (Man) 0 % 05/26/18 15:32 Monocytes % (Manual) 4.0 % (0.0-7.3) 05/26/18 15:32 Eosinophils % (Manual) 0 % (0.0-4.3) 05/26/18 15:32 Basophils % (Manual) 0 % (0.0-1.8) 05/26/18 15:32 Metamyelocytes % 0 % 05/26/18 15:32 Myelocytes % 0 % 05/26/18 15:32 Promyelocytes % 0 % 05/26/18 15:32 Blast Cells % 0 % 05/26/18 15:32 Nucleated RBC % Not Reportable 05/26/18 15:32 Seg Neutrophils # Man 15.7 K/mm3 (1.8-7.7) H 05/26/18 15:32 Band Neutrophils # 0.0 K/mm3 05/26/18 15:32 Lymphocytes # (Manual) 0.9 K/mm3 (1.2-5.4) L 05/26/18 15:32 Abs React Lymphs (Man) 0.0 K/mm3 05/26/18 15:32 Monocytes # (Manual) 0.7 K/mm3 (0.0-0.8) 05/26/18 15:32 Eosinophils # (Manual) 0.0 K/mm3 (0.0-0.4) 05/26/18 15:32 Basophils # (Manual) 0.0 K/mm3 (0.0-0.1) 05/26/18 15:32 Metamyelocytes # 0.0 K/mm3 05/26/18 15:32 Myelocytes # 0.0 K/mm3 05/26/18 15:32 Promyelocytes # 0.0 K/mm3 05/26/18 15:32 Blast Cells # 0.0 K/mm3 05/26/18 15:32 WBC Morphology Not Reportable 05/26/18 15:32 Hypersegmented Neuts Not Reportable 05/26/18 15:32 Hyposegmented Neuts Not Reportable 05/26/18 15:32 Hypogranular Neuts Not Reportable 05/26/18 15:32 Smudge Cells Not Reportable 05/26/18 15:32 Toxic Granulation Not Reportable 05/26/18 15:32 Toxic Vacuolation Not Reportable 05/26/18 15:32 Dohle Bodies Not Reportable 05/26/18 15:32 Pelger-Huet Anomaly Not Reportable 05/26/18 15:32 Elen Rods Not Reportable 05/26/18 15:32 Platelet Estimate Not Reportable 05/26/18 15:32 Clumped Platelets Not Reportable 05/26/18 15:32 Plt Clumps, EDTA Not Reportable 05/26/18 15:32 Large Platelets Not Reportable 05/26/18 15:32 Giant Platelets Not Reportable 05/26/18 15:32 Platelet Satelliting Not Reportable 05/26/18 15:32 Plt Morphology Comment Not Reportable 05/26/18 15:32 RBC Morphology Normal 05/26/18 15:32 Dimorphic RBCs Not Reportable 05/26/18 15:32 Polychromasia Not Reportable 05/26/18 15:32 Hypochromasia Not Reportable 05/26/18 15:32 Poikilocytosis Not Reportable 05/26/18 15:32 Anisocytosis Not Reportable 05/26/18 15:32 Microcytosis Not Reportable 05/26/18 15:32 Macrocytosis Not Reportable 05/26/18 15:32 Spherocytes Not Reportable 05/26/18 15:32 Pappenheimer Bodies Not Reportable 05/26/18 15:32 Sickle Cells Not Reportable 05/26/18 15:32 Target Cells Not Reportable 05/26/18 15:32 Tear Drop Cells Not Reportable 05/26/18 15:32 Ovalocytes Not Reportable 05/26/18 15:32 Helmet Cells Not Reportable 05/26/18 15:32 [place] Bodies Not Reportable 05/26/18 15:32 [place] Rings Not Reportable 05/26/18 15:32 [place] Cells Not Reportable 05/26/18 15:32 Bite Cells Not Reportable 05/26/18 15:32 Crenated Cell Not Reportable 05/26/18 15:32 Elliptocytes Not Reportable 05/26/18 15:32 Acanthocytes (Spur) Not Reportable 05/26/18 15:32 Rouleaux Not Reportable 05/26/18 15:32 Hemoglobin C Crystals Not Reportable 05/26/18 15:32 Schistocytes Not Reportable 05/26/18 15:32 Malaria parasites Not Reportable 05/26/18 15:32 Kash Bodies Not Reportable 05/26/18 15:32 Hem Pathologist Commnt No 05/26/18 15:32 Sodium 144 mmol/L (137-145) 05/27/18 04:20 Potassium 4.4 mmol/L (3.6-5.0) 05/27/18 04:20 Chloride 105.8 mmol/L (98-107) 05/27/18 04:20 Carbon Dioxide 29 mmol/L (22-30) 05/27/18 04:20 Anion Gap 14 mmol/L 05/27/18 04:20 BUN 13 mg/dL (9-20) 05/27/18 04:20 Creatinine 1.1 mg/dL (0.8-1.5) 05/27/18 04:20 Estimated GFR > 60 ml/min 05/27/18 04:20 BUN/Creatinine Ratio 12 % 05/27/18 04:20 Glucose 114 mg/dL (75-100) H 05/27/18 04:20 Calcium 8.1 mg/dL (8.4-10.2) L 05/27/18 04:20 Total Bilirubin 0.80 mg/dL (0.1-1.2) 05/25/18 16:19 AST 20 units/L (5-40) 05/25/18 16:19 ALT 19 units/L (7-56) 05/25/18 16:19 Alkaline Phosphatase 107 units/L (35-129) 05/25/18 16:19 Total Protein 9.2 g/dL (6.3-8.2) H 05/25/18 16:19 Albumin 4.4 g/dL (3.9-5) 05/25/18 16:19 Albumin/Globulin Ratio 0.9 % 05/25/18 16:19 Lipase 7 units/L (13-60) L 05/25/18 16:19 Urine Color Mary (Yellow) 05/25/18 19:51 Urine Turbidity Clear (Clear) 05/25/18 19:51 Urine pH 5.0 (5.0-7.0) 05/25/18 19:51 Ur Specific [place] 1.030 (1.003-1.030) 05/25/18 19:51 Urine Protein 100 mg/dl mg/dL (Negative) 05/25/18 19:51 Urine Glucose (UA) Neg mg/dL (Negative) 05/25/18 19:51 Urine Ketones 80 mg/dL (Negative) 05/25/18 19:51 Urine Blood Neg (Negative) 05/25/18 19:51 Urine Nitrite Neg (Negative) 05/25/18 19:51 Urine Bilirubin Mod (Negative) 05/25/18 19:51 Urine Ictotest Positive (Negative) 05/25/18 19:51 Urine Urobilinogen 2.0 mg/dL (<2.0) 05/25/18 19:51 Ur Leukocyte Esterase Neg (Negative) 05/25/18 19:51 Urine WBC (Auto) 2.0 /HPF (0.0-6.0) 05/25/18 19:51 Urine RBC (Auto) 6.0 /HPF (0.0-6.0) 05/25/18 19:51 U Epithel Cells (Auto) < 1.0 /HPF (0-13.0) 05/25/18 19:51 Urine Bacteria (Auto) 1+ /HPF (Negative) 05/25/18 19:51 Hyaline Casts 16 /LPF 05/25/18 19:51 Urine Mucus 2+ /HPF 05/25/18 19:51
[2018-05-28] MEDS: D5W/0.45% NACL/KCL 20 MEQ 20 MEQ/1,000 ML BAG IV SCH ×3 (00:44→21:11)
[2018-05-28] MEDS: TORADOL IV SCH ×4 (00:49→18:43)
[2018-05-28] MEDS: SODIUM CHLORIDE FLUSH SYRINGE 10 ML IV SCH ×3 (00:53→21:12)
[2018-05-28] MEDS: MORPHINE IV PRN ×5 (04:31→23:23)
[2018-05-28] MEDS: LOVENOX SUB-Q SCH (09:04)
--- NOTE | 2018-05-28 12:09 | Progress Note ---
Assessment and Plan - Patient Problems (1) Bowel obstruction Current Visit: Yes Status: Acute Qualifiers: Intestinal obstruction type: other intestinal obstruction Intestinal obstruction extent: partial Qualified Code(s): K56.690 - Other partial intestinal obstruction Plan to address problem: Pt stable. s/p right hemicolectomy with primary anastomosis - 05/26/18 - POD#2. Pt doing well. No concerns at this time. - continue ambulating - IS - Will remove NGT and start clears once we have consistent flatus. - continue IVF for now. - continue toradol Please call with questions. Subjective Date of service: 05/28/18 Patient Reports: Positive: no new complaints, feels better, flatus, other (walk ed twice yesterday. ). Negative: nausea, vomiting Objective Vital Signs - 12hr 05/28/18 05/28/18 05/28/18 00:11 04:19 07:19 Temperature 101.1 F H 99.5 F 98.8 F Pulse Rate 94 H 98 H 100 H Respiratory 20 20 18 Rate Blood Pressure 120/76 127/76 Blood Pressure 118/78 [Right] O2 Sat by Pulse 96 97 Oximetry - General physical appearance no distress, no pain, other (smiling in bed) - Eyes normal occular movement - Respiratory normal expansion, normal respiratory effort - Abdomen soft, tender (mild - appropriate), bowel sounds hypoactive, not distended, not guarding, not rigid, surgical scars (old clot on incision. Otherwise, C/D/I. ) - Integumentary no rash, no growths, no abnormal pigmentation - Psychiatric oriented to time, oriented to person, oriented to place, speech is normal, memory intact - Labs 05/27/18 04:20 05/27/18 04:20
--- NOTE | 2018-05-28 15:16 | Progress Note ---
Assessment and Plan Assessment and plan: per admission documentation: 42-year-old man with no medical history comes emergency room with complaints of abdominal pain. Pain is in the right lower quadrant which started 2 months ago, intermittent every 5 minutes, sharp, intensity 8/10, no radiation, he reports some bloating but has fluctuance and also belching. He reported assocaited nausea and vomiting in the last two days but no BM for the last 2 and half days Cannot identify exacerbating factors, better with pain medication given in the emergency room. Admits to nausea vomiting, no bowel movements SBO Secondary to Tumor- POD #2 S/P right hemicolectomy with primary anastomosis Leukocytosis- possible reactive. Peritoneal Irritation. Mass. Fever Plan Patient proceeded for surgery today noted to have a tumor causing obstruction Discussed with surgery, no meds for fever for now. Continue current therapy, encourage ambulation S/P ex lap, right hemicolectomy with primary anastomosis, partial omentectomy, partial sigmoid colectomy Pathology pending. Toradol for pain control Incentive spirometer Pain control DVT/GI prophy Discussed plan of care with family and patient. History Interval history: Patient seen and examined, s/p surgery. Patient reports improvement with his symptom. Noted with fever, likely surgical in nature. Hospitalist Physical - Physical exam Narrative exam: General Appearance: The patient lying in bed, HEENT: Normocephalic, atraumatic. Pupils equally round and reactive to light, EOMI, no sclericterus or JVD or thyromegaly or nodule. no carotid bruit, mucous membranes moist, no exudate or erythema. Heart: S1-S2, regular is rhythm Lungs: Clear to auscultation bilaterally, breathing comfortable Abdomen: Tender at surgical site. Positive bowel sound. Extremities: No edema cyanosis clubbing Skin: no rash, nodule, warm and dry Neuro: cranial nerves 2-12 intact, speech is fluent, motor/sensory intact - Constitutional Vitals: Temp Pulse Resp BP Pulse Ox 100.0 F H 96 H 19 125/73 94 05/28/18 11:53 05/28/18 11:53 05/28/18 14:47 05/28/18 11:53 05/28/18 11:53 Results - Labs CBC & Chem 7: 05/27/18 04:20 05/27/18 04:20 Labs: Laboratory Last Values WBC 14.7 K/mm3 (4.5-11.0) H 05/27/18 04:20 RBC 4.61 M/mm3 (3.65-5.03) 05/27/18 04:20 Hgb 14.1 gm/dl (11.8-15.2) 05/27/18 04:20 Hct 43.1 % (35.5-45.6) 05/27/18 04:20 MCV 94 fl (84-94) 05/27/18 04:20 MCH 31 pg (28-32) 05/27/18 04:20 MCHC 33 % (32-34) 05/27/18 04:20 RDW 16.5 % (13.2-15.2) H 05/27/18 04:20 Plt Count 319 K/mm3 (140-440) 05/27/18 04:20 Add Manual Diff Complete 05/26/18 15:32 Total Counted 100 05/26/18 15:32 Seg Neutrophils % Disciplinary Hearing Officer 05/26/18 15:32 Seg Neuts % (Manual) 91.0 % (40.0-70.0) H 05/26/18 15:32 Band Neutrophils % 0 % 05/26/18 15:32 Lymphocytes % (Manual) 5.0 % (13.4-35.0) L 05/26/18 15:32 Reactive Lymphs % (Man) 0 % 05/26/18 15:32 Monocytes % (Manual) 4.0 % (0.0-7.3) 05/26/18 15:32 Eosinophils % (Manual) 0 % (0.0-4.3) 05/26/18 15:32 Basophils % (Manual) 0 % (0.0-1.8) 05/26/18 15:32 Metamyelocytes % 0 % 05/26/18 15:32 Myelocytes % 0 % 05/26/18 15:32 Promyelocytes % 0 % 05/26/18 15:32 Blast Cells % 0 % 05/26/18 15:32 Nucleated RBC % Not Reportable 05/26/18 15:32 Seg Neutrophils # Man 15.7 K/mm3 (1.8-7.7) H 05/26/18 15:32 Band Neutrophils # 0.0 K/mm3 05/26/18 15:32 Lymphocytes # (Manual) 0.9 K/mm3 (1.2-5.4) L 05/26/18 15:32 Abs React Lymphs (Man) 0.0 K/mm3 05/26/18 15:32 Monocytes # (Manual) 0.7 K/mm3 (0.0-0.8) 05/26/18 15:32 Eosinophils # (Manual) 0.0 K/mm3 (0.0-0.4) 05/26/18 15:32 Basophils # (Manual) 0.0 K/mm3 (0.0-0.1) 05/26/18 15:32 Metamyelocytes # 0.0 K/mm3 05/26/18 15:32 Myelocytes # 0.0 K/mm3 05/26/18 15:32 Promyelocytes # 0.0 K/mm3 05/26/18 15:32 Blast Cells # 0.0 K/mm3 05/26/18 15:32 WBC Morphology Not Reportable 05/26/18 15:32 Hypersegmented Neuts Not Reportable 05/26/18 15:32 Hyposegmented Neuts Not Reportable 05/26/18 15:32 Hypogranular Neuts Not Reportable 05/26/18 15:32 Smudge Cells Not Reportable 05/26/18 15:32 Toxic Granulation Not Reportable 05/26/18 15:32 Toxic Vacuolation Not Reportable 05/26/18 15:32 Dohle Bodies Not Reportable 05/26/18 15:32 Pelger-Huet Anomaly Not Reportable 05/26/18 15:32 Elen Rods Not Reportable 05/26/18 15:32 Platelet Estimate Not Reportable 05/26/18 15:32 Clumped Platelets Not Reportable 05/26/18 15:32 Plt Clumps, EDTA Not Reportable 05/26/18 15:32 Large Platelets Not Reportable 05/26/18 15:32 Giant Platelets Not Reportable 05/26/18 15:32 Platelet Satelliting Not Reportable 05/26/18 15:32 Plt Morphology Comment Not Reportable 05/26/18 15:32 RBC Morphology Normal 05/26/18 15:32 Dimorphic RBCs Not Reportable 05/26/18 15:32 Polychromasia Not Reportable 05/26/18 15:32 Hypochromasia Not Reportable 05/26/18 15:32 Poikilocytosis Not Reportable 05/26/18 15:32 Anisocytosis Not Reportable 05/26/18 15:32 Microcytosis Not Reportable 05/26/18 15:32 Macrocytosis Not Reportable 05/26/18 15:32 Spherocytes Not Reportable 05/26/18 15:32 Pappenheimer Bodies Not Reportable 05/26/18 15:32 Sickle Cells Not Reportable 05/26/18 15:32 Target Cells Not Reportable 05/26/18 15:32 Tear Drop Cells Not Reportable 05/26/18 15:32 Ovalocytes Not Reportable 05/26/18 15:32 Helmet Cells Not Reportable 05/26/18 15:32 Deshpande-[place] Bodies Not Reportable 05/26/18 15:32 [place] Rings Not Reportable 05/26/18 15:32 [place] Cells Not Reportable 05/26/18 15:32 Bite Cells Not Reportable 05/26/18 15:32 Crenated Cell Not Reportable 05/26/18 15:32 Elliptocytes Not Reportable 05/26/18 15:32 Acanthocytes (Spur) Not Reportable 05/26/18 15:32 Rouleaux Not Reportable 05/26/18 15:32 Hemoglobin C Crystals Not Reportable 05/26/18 15:32 Schistocytes Not Reportable 05/26/18 15:32 Malaria parasites Not Reportable 05/26/18 15:32 Kash Bodies Not Reportable 05/26/18 15:32 Hem Pathologist Commnt No 05/26/18 15:32 Sodium 144 mmol/L (137-145) 05/27/18 04:20 Potassium 4.4 mmol/L (3.6-5.0) 05/27/18 04:20 Chloride 105.8 mmol/L (98-107) 05/27/18 04:20 Carbon Dioxide 29 mmol/L (22-30) 05/27/18 04:20 Anion Gap 14 mmol/L 05/27/18 04:20 BUN 13 mg/dL (9-20) 05/27/18 04:20 Creatinine 1.1 mg/dL (0.8-1.5) 05/27/18 04:20 Estimated GFR > 60 ml/min 05/27/18 04:20 BUN/Creatinine Ratio 12 % 05/27/18 04:20 Glucose 114 mg/dL (75-100) H 05/27/18 04:20 Calcium 8.1 mg/dL (8.4-10.2) L 05/27/18 04:20 Total Bilirubin 0.80 mg/dL (0.1-1.2) 05/25/18 16:19 AST 20 units/L (5-40) 05/25/18 16:19 ALT 19 units/L (7-56) 05/25/18 16:19 Alkaline Phosphatase 107 units/L (35-129) 05/25/18 16:19 Total Protein 9.2 g/dL (6.3-8.2) H 05/25/18 16:19 Albumin 4.4 g/dL (3.9-5) 05/25/18 16:19 Albumin/Globulin Ratio 0.9 % 05/25/18 16:19 Lipase 7 units/L (13-60) L 05/25/18 16:19 Urine Color [place] (Yellow) 05/25/18 19:51 Urine Turbidity Clear (Clear) 05/25/18 19:51 Urine pH 5.0 (5.0-7.0) 05/25/18 19:51 Ur Specific [place] 1.030 (1.003-1.030) 05/25/18 19:51 Urine Protein 100 mg/dl mg/dL (Negative) 05/25/18 19:51 Urine Glucose (UA) Neg mg/dL (Negative) 05/25/18 19:51 Urine Ketones 80 mg/dL (Negative) 05/25/18 19:51 Urine Blood Neg (Negative) 05/25/18 19:51 Urine Nitrite Neg (Negative) 05/25/18 19:51 Urine Bilirubin Mod (Negative) 05/25/18 19:51 Urine Ictotest Positive (Negative) 05/25/18 19:51 Urine Urobilinogen 2.0 mg/dL (<2.0) 05/25/18 19:51 Ur Leukocyte Esterase Neg (Negative) 05/25/18 19:51 Urine WBC (Auto) 2.0 /HPF (0.0-6.0) 05/25/18 19:51 Urine RBC (Auto) 6.0 /HPF (0.0-6.0) 05/25/18 19:51 U Epithel Cells (Auto) < 1.0 /HPF (0-13.0) 05/25/18 19:51 Urine Bacteria (Auto) 1+ /HPF (Negative) 05/25/18 19:51 Hyaline Casts 16 /LPF 05/25/18 19:51 Urine Mucus 2+ /HPF 05/25/18 19:51
[2018-05-28] MEDS: ZOFRAN IV PRN (18:45)
[2018-05-29] MEDS: TORADOL IV SCH ×3 (00:15→12:00)
[2018-05-29 04:34] LABS: Hematocrit 33.8 % (35.5-45.6); Mean Corpuscular HGB Conc 33 % (32-34); Mean Corpuscular Volume 93 fl (84-94); Platelet Count 242 K/mm3 (140-440); Red Blood Count 3.66 M/mm3 (3.65-5.03); Red Cell Distribution Width 15.7 % (13.2-15.2)
[2018-05-29] MEDS ORDERED: TYLENOL PR PRN (04:42)
[2018-05-29 05:31] LABS: BUN/Creatinine Ratio 9; Blood Urea Nitrogen 7 mg/dL (9-20); Calcium 7.9 mg/dL (8.4-10.2); Hemolysis Index 2
[2018-05-29] MEDS: D5W/0.45% NACL/KCL 20 MEQ 20 MEQ/1,000 ML BAG IV SCH (06:33)
[2018-05-29 07:16] LABS: Bilirubin,Urine NEG (Negative); Blood,Urine NEG (Negative); Color,Urine Yellow (Yellow); Mucus,Urine FEW /HPF; Urobilinogen,Urine < 2.0 mg/dL (<2.0); WBC,Urine < 1.0 /HPF (0.0-6.0)
--- NOTE | 2018-05-29 08:24 | XRay Report ---
ROUTINE CHEST, TWO VIEWS: HISTORY: Fever, elevated temperature. There is a large amount of free air beneath the diaphragms. A nasogastric tube is in position. This could be secondary to recent surgery, otherwise, visceral perforation is suspected. Please correlate with the patient and consider further evaluation of the abdomen. Minor discoid atelectasis is identified in the right midlung. No evidence for pneumonia, pleural fluid or pneumothorax. Heart size is normal. IMPRESSION: Free air in the upper abdomen. See above. Minor discoid atelectasis in the right lung. No evidence for infiltrate.
--- NOTE | 2018-05-29 10:00 | Progress Note ---
Assessment and Plan - Patient Problems (1) Bowel obstruction Current Visit: Yes Status: Acute Qualifiers: Intestinal obstruction type: other intestinal obstruction Intestinal obstruction extent: partial Qualified Code(s): K56.690 - Other partial intestinal obstruction Plan to address problem: Pt stable. s/p right hemicolectomy with primary anastomosis - 05/26/18 - POD#3. Concerned about fever. Probably post-op atelectasis or inflammatory response. Does not appear to have active infection. WBC normal (down trending). Abdominal exam is completely benign. No sensitivity even with pelvic shake. My interpretation of the abdominal film is that there is a single pocket of air under the right hemidiaphragm, the intestines are dilated with air (as expected), and there is gas in the rectum which would correlate with his sensation that he is about to pass gas. He does not give the impression of someone with an anastomotic leak/breakdown. Would continue to observe for now and encourage ambulation. IS performance is much better today. Hgb down today with slight reddish tinge to NGT output. Will check gastric occult blood test. If positive, hold lovenox and toradol. - continue ambulating - IS - Will remove NGT and start clears once we have consistent flatus. - continue IVF for now. - continue toradol - CBC with diff in AM. Please call with questions. Subjective Date of service: 05/29/18 Patient Reports: Positive: no new complaints, pain is less, no flatus (feels like it is about to come. ), no bowel movement. Negative: nausea, vomiting Narrative: Pr reports that he is feeling better and feels as though he is making progress. No UTI symptoms. No difficulty breathing. No abdominal pain unless he coughs which causes pain at the lower incision. No leg pain. Does not feel ill. Family does not feel as though he looks ill. Objective Vital Signs - 12hr 05/29/18 05/29/18 05/29/18 04:22 04:49 07:10 Temperature 101.3 F H 99.9 F H Pulse Rate 99 H 104 H Respiratory 18 19 Rate Blood Pressure 118/73 Blood Pressure 118/73 118/81 [Right] O2 Sat by Pulse 97 Oximetry - General physical appearance no distress, no pain, other (looks well. ) - Respiratory normal expansion, normal respiratory effort - Abdomen soft, not tender, bowel sounds hypoactive (few normal sounds. ), distended, not rebound, not guarding, not rigid, other (NGT with slight reddish tinge. No pelvic shake tenderness) - Integumentary no rash, no growths, no abnormal pigmentation - Psychiatric oriented to time, oriented to person, oriented to place, speech is normal, memory intact - Labs 05/29/18 04:05 05/29/18 04:05 Diabetes panel 05/29/18 Range/Units 04:05 Sodium 136 L D (137-145) mmol/L Potassium 4.0 (3.6-5.0) mmol/L Chloride 101.9 (98-107) mmol/L Carbon Dioxide 25 (22-30) mmol/L BUN 7 L (9-20) mg/dL Creatinine 0.8 (0.8-1.5) mg/dL Glucose 119 H (75-100) mg/dL Calcium 7.9 L (8.4-10.2) mg/dL Calcium panel 05/29/18 Range/Units 04:05 Calcium 7.9 L (8.4-10.2) mg/dL Pituitary panel 05/29/18 Range/Units 04:05 Sodium 136 L D (137-145) mmol/L Potassium 4.0 (3.6-5.0) mmol/L Chloride 101.9 (98-107) mmol/L Carbon Dioxide 25 (22-30) mmol/L BUN 7 L (9-20) mg/dL Creatinine 0.8 (0.8-1.5) mg/dL Glucose 119 H (75-100) mg/dL Calcium 7.9 L (8.4-10.2) mg/dL Adrenal panel 05/29/18 Range/Units 04:05 Sodium 136 L D (137-145) mmol/L Potassium 4.0 (3.6-5.0) mmol/L Chloride 101.9 (98-107) mmol/L Carbon Dioxide 25 (22-30) mmol/L BUN 7 L (9-20) mg/dL Creatinine 0.8 (0.8-1.5) mg/dL Glucose 119 H (75-100) mg/dL Calcium 7.9 L (8.4-10.2) mg/dL - Imaging Chest x-ray: report reviewed, image reviewed Abdominal x-ray: image reviewed
--- NOTE | 2018-05-29 11:18 | XRay Report ---
ABDOMEN, 2 views: History: Abdominal distention and fever. Compared to the exam dated 05/26/18. Recent abdominal surgery changes are noted. A nasogastric tube terminates in a distal stomach. There is moderate to large free air beneath both hemidiaphragms on the upright view. Dilated loops of small bowel with larger fluid levels are identified in the upper abdomen. I suppose this could represent a postop ileus although obstructive processes difficult to exclude. IMPRESSION: Free air is identified in the abdomen. Surgery 3 days ago was reported. This appears to be a relatively large amount of air. Perforated viscus is difficult to exclude. Ileus.
[2018-05-29] MEDS: MORPHINE IV PRN ×2 (11:27→20:30)
[2018-05-29] MEDS: LOVENOX SUB-Q SCH (12:53)
[2018-05-29] MEDS: SODIUM CHLORIDE FLUSH SYRINGE 10 ML IV SCH ×2 (12:53→21:16)
--- NOTE | 2018-05-29 13:12 | Event Note ---
Date: 05/29/18 occult blood was positive in NGT output. Will hold lovenox and toradol. Repeat CBC in AM. Have ordered CT to rule out possibility of anastomotic leak. Only Po contrast given due to shellfish allergy. Protocol here requires a 13hour prep for shellfish allergy. I don't think we should wait that long. therefore, we will move forward with the PO contrast only. No iodine in PO contrast per tech, therefore, no premedication needed.
--- NOTE | 2018-05-29 16:23 | Progress Note ---
Assessment and Plan Assessment and plan: per admission documentation: 42-year-old man with no medical history comes emergency room with complaints of abdominal pain. Pain is in the right lower quadrant which started 2 months ago, intermittent every 5 minutes, sharp, intensity 8/10, no radiation, he reports some bloating but has fluctuance and also belching. He reported assocaited nausea and vomiting in the last two days but no BM for the last 2 and half days Cannot identify exacerbating factors, better with pain medication given in the emergency room. Admits to nausea vomiting, no bowel movements SBO Secondary to Tumor- POD #3 S/P right hemicolectomy with primary anastomosis Leukocytosis- possible reactive. Peritoneal Irritation. Mass. Fever Plan Continue supportive care Monitor H.H CT abd with po contrast to monitor for any anastomsis leak Discussed with surgery, no meds for fever for now. Continue current therapy, encourage ambulation S/P ex lap, right hemicolectomy with primary anastomosis, partial omentectomy, partial sigmoid colectomy Pathology pending. Toradol and lovenox held Incentive spirometer Pain control DVT/GI prophy Discussed plan of care with family and patient. History Interval history: Patient seen and examined, s/p surgery. Still with abdominal pain, some blood tinged in NGT this morning. no new fever Hospitalist Physical - Physical exam Narrative exam: General Appearance: The patient lying in bed, HEENT: Normocephalic, atraumatic. Pupils equally round and reactive to light, EOMI, no sclericterus or JVD or thyromegaly or nodule. no carotid bruit, mucous membranes moist, no exudate or erythema. Heart: S1-S2, regular is rhythm Lungs: Clear to auscultation bilaterally, breathing comfortable Abdomen: Tender at surgical site. Positive bowel sound. Extremities: No edema cyanosis clubbing Skin: no rash, nodule, warm and dry Neuro: cranial nerves 2-12 intact, speech is fluent, motor/sensory intact - Constitutional Vitals: Temp Pulse Resp BP Pulse Ox 98.1 F 101 H 18 110/77 100 05/29/18 15:52 05/29/18 15:52 05/29/18 15:52 05/29/18 15:52 05/29/18 15:52 Results - Labs CBC & Chem 7: 05/29/18 04:05 05/29/18 04:05 Labs: Laboratory Last Values WBC 11.1 K/mm3 (4.5-11.0) H 05/29/18 04:05 RBC 3.66 M/mm3 (3.65-5.03) 05/29/18 04:05 Hgb 11.0 gm/dl (11.8-15.2) L D 05/29/18 04:05 Hct 33.8 % (35.5-45.6) L D 05/29/18 04:05 MCV 93 fl (84-94) 05/29/18 04:05 MCH 30 pg (28-32) 05/29/18 04:05 MCHC 33 % (32-34) 05/29/18 04:05 RDW 15.7 % (13.2-15.2) H 05/29/18 04:05 Plt Count 242 K/mm3 (140-440) 05/29/18 04:05 Add Manual Diff Complete 05/26/18 15:32 Total Counted 100 05/26/18 15:32 Seg Neutrophils % Mba Intern 05/26/18 15:32 Seg Neuts % (Manual) 91.0 % (40.0-70.0) H 05/26/18 15:32 Band Neutrophils % 0 % 05/26/18 15:32 Lymphocytes % (Manual) 5.0 % (13.4-35.0) L 05/26/18 15:32 Reactive Lymphs % (Man) 0 % 05/26/18 15:32 Monocytes % (Manual) 4.0 % (0.0-7.3) 05/26/18 15:32 Eosinophils % (Manual) 0 % (0.0-4.3) 05/26/18 15:32 Basophils % (Manual) 0 % (0.0-1.8) 05/26/18 15:32 Metamyelocytes % 0 % 05/26/18 15:32 Myelocytes % 0 % 05/26/18 15:32 Promyelocytes % 0 % 05/26/18 15:32 Blast Cells % 0 % 05/26/18 15:32 Nucleated RBC % Not Reportable 05/26/18 15:32 Seg Neutrophils # Man 15.7 K/mm3 (1.8-7.7) H 05/26/18 15:32 Band Neutrophils # 0.0 K/mm3 05/26/18 15:32 Lymphocytes # (Manual) 0.9 K/mm3 (1.2-5.4) L 05/26/18 15:32 Abs React Lymphs (Man) 0.0 K/mm3 05/26/18 15:32 Monocytes # (Manual) 0.7 K/mm3 (0.0-0.8) 05/26/18 15:32 Eosinophils # (Manual) 0.0 K/mm3 (0.0-0.4) 05/26/18 15:32 Basophils # (Manual) 0.0 K/mm3 (0.0-0.1) 05/26/18 15:32 Metamyelocytes # 0.0 K/mm3 05/26/18 15:32 Myelocytes # 0.0 K/mm3 05/26/18 15:32 Promyelocytes # 0.0 K/mm3 05/26/18 15:32 Blast Cells # 0.0 K/mm3 05/26/18 15:32 WBC Morphology Not Reportable 05/26/18 15:32 Hypersegmented Neuts Not Reportable 05/26/18 15:32 Hyposegmented Neuts Not Reportable 05/26/18 15:32 Hypogranular Neuts Not Reportable 05/26/18 15:32 Smudge Cells Not Reportable 05/26/18 15:32 Toxic Granulation Not Reportable 05/26/18 15:32 Toxic Vacuolation Not Reportable 05/26/18 15:32 Dohle Bodies Not Reportable 05/26/18 15:32 Pelger-Huet Anomaly Not Reportable 05/26/18 15:32 Elen Rods Not Reportable 05/26/18 15:32 Platelet Estimate Not Reportable 05/26/18 15:32 Clumped Platelets Not Reportable 05/26/18 15:32 Plt Clumps, EDTA Not Reportable 05/26/18 15:32 Large Platelets Not Reportable 05/26/18 15:32 Giant Platelets Not Reportable 05/26/18 15:32 Platelet Satelliting Not Reportable 05/26/18 15:32 Plt Morphology Comment Not Reportable 05/26/18 15:32 RBC Morphology Normal 05/26/18 15:32 Dimorphic RBCs Not Reportable 05/26/18 15:32 Polychromasia Not Reportable 05/26/18 15:32 Hypochromasia Not Reportable 05/26/18 15:32 Poikilocytosis Not Reportable 05/26/18 15:32 Anisocytosis Not Reportable 05/26/18 15:32 Microcytosis Not Reportable 05/26/18 15:32 Macrocytosis Not Reportable 05/26/18 15:32 Spherocytes Not Reportable 05/26/18 15:32 Pappenheimer Bodies Not Reportable 05/26/18 15:32 Sickle Cells Not Reportable 05/26/18 15:32 Target Cells Not Reportable 05/26/18 15:32 Tear Drop Cells Not Reportable 05/26/18 15:32 Ovalocytes Not Reportable 05/26/18 15:32 Helmet Cells Not Reportable 05/26/18 15:32 Deshpande-[place] Bodies Not Reportable 05/26/18 15:32 [place] Rings Not Reportable 05/26/18 15:32 [place] Cells Not Reportable 05/26/18 15:32 Bite Cells Not Reportable 05/26/18 15:32 Crenated Cell Not Reportable 05/26/18 15:32 Elliptocytes Not Reportable 05/26/18 15:32 Acanthocytes (Spur) Not Reportable 05/26/18 15:32 Rouleaux Not Reportable 05/26/18 15:32 Hemoglobin C Crystals Not Reportable 05/26/18 15:32 Schistocytes Not Reportable 05/26/18 15:32 Malaria parasites Not Reportable 05/26/18 15:32 Kash Bodies Not Reportable 05/26/18 15:32 Hem Pathologist Commnt No 05/26/18 15:32 Sodium 136 mmol/L (137-145) L D 05/29/18 04:05 Potassium 4.0 mmol/L (3.6-5.0) 05/29/18 04:05 Chloride 101.9 mmol/L (98-107) 05/29/18 04:05 Carbon Dioxide 25 mmol/L (22-30) 05/29/18 04:05 Anion Gap 13 mmol/L 05/29/18 04:05 BUN 7 mg/dL (9-20) L 05/29/18 04:05 Creatinine 0.8 mg/dL (0.8-1.5) 05/29/18 04:05 Estimated GFR > 60 ml/min 05/29/18 04:05 BUN/Creatinine Ratio 9 % 05/29/18 04:05 Glucose 119 mg/dL (75-100) H 05/29/18 04:05 Calcium 7.9 mg/dL (8.4-10.2) L 05/29/18 04:05 Total Bilirubin 0.80 mg/dL (0.1-1.2) 05/25/18 16:19 AST 20 units/L (5-40) 05/25/18 16:19 ALT 19 units/L (7-56) 05/25/18 16:19 Alkaline Phosphatase 107 units/L (35-129) 05/25/18 16:19 Total Protein 9.2 g/dL (6.3-8.2) H 05/25/18 16:19 Albumin 4.4 g/dL (3.9-5) 05/25/18 16:19 Albumin/Globulin Ratio 0.9 % 05/25/18 16:19 Lipase 7 units/L (13-60) L 05/25/18 16:19 Urine Color Yellow (Yellow) 05/29/18 06:49 Urine Turbidity Clear (Clear) 05/29/18 06:49 Urine pH 8.0 (5.0-7.0) H 05/29/18 06:49 Ur Specific [place] 1.019 (1.003-1.030) 05/29/18 06:49 Urine Protein 100 mg/dl mg/dL (Negative) 05/29/18 06:49 Urine Glucose (UA) Neg mg/dL (Negative) 05/29/18 06:49 Urine Ketones Neg mg/dL (Negative) 05/29/18 06:49 Urine Blood Neg (Negative) 05/29/18 06:49 Urine Nitrite Neg (Negative) 05/29/18 06:49 Urine Bilirubin Neg (Negative) 05/29/18 06:49 Urine Ictotest Positive (Negative) 05/25/18 19:51 Urine Urobilinogen < 2.0 mg/dL (<2.0) 05/29/18 06:49 Ur Leukocyte Esterase Neg (Negative) 05/29/18 06:49 Urine WBC (Auto) < 1.0 /HPF (0.0-6.0) 05/29/18 06:49 Urine RBC (Auto) 3.0 /HPF (0.0-6.0) 05/29/18 06:49 U Epithel Cells (Auto) < 1.0 /HPF (0-13.0) 05/25/18 19:51 Urine Bacteria (Auto) 1+ /HPF (Negative) 05/25/18 19:51 Hyaline Casts 16 /LPF 05/25/18 19:51 Urine Mucus Few /HPF 05/29/18 06:49
--- NOTE | 2018-05-29 17:38 | Cat Scan Report ---
FINAL REPORT PROCEDURE: CT abdomen and pelvis without contrast. TECHNIQUE: Computerized axial tomography of the abdomen and pelvis was performed without intravenous contrast. This study is performed without intravascular contrast material and its sensitivity for ab dominal and pelvic pathology, including neoplasms, inflammation, abscess, free fluid, thrombosis, art erial dissection and infarction, is reduced compared with a contrast enhanced study. HISTORY: Check for anastomotic leak. COMPARISON: CT abdomen and pelvis 05/25/2018. FINDINGS: There is subsegmental atelectasis in the left lower lobe. There are no pleural effusions. The heart s ize is normal. The liver, pancreas and spleen are grossly normal. The gallbladder is present. There i s no biliary dilatation. The adrenal glands are not enlarged. Both kidneys appear normal in size and configuration. The abdominal aorta has a normal caliber. There is no retroperitoneal adenopathy. Ther e is a small amount of contrast within the stomach. A nasogastric tube is present. The remainder of t he unopacified gastrointestinal tract is unremarkable. There may be a small amount of fluid in the ri ght side of the lower pelvis. This could also simply represent an unopacified bowel loop. There is a large volume of pneumoperitoneum present. The amount of pneumoperitoneum appears excessive despite th e presence of midline abdominal skin jose. I cannot exclude air leaking from a surgical anastomosi s. Clinical correlation is recommended. The bladder, seminal vesicles and prostate appear normal. The regional skeleton appears intact. IMPRESSION: Large amount of pneumoperitoneum. Air leakage from a surgical anastomosis cannot be excluded. Possibl e small amount of fluid in the lower pelvis versus unopacified loop of bowel.
--- NOTE | 2018-05-29 22:22 | Event Note ---
Date: 05/29/18 CT images and report reviewed. There is a moderate amount of free air, but the contrast has not passed far enough to document a leak. The bowel is also distended, which could account for his distended abdomen. With a benign abdominal exam, except for distention and a down trending WBC, it is hard to believe that the patient has a significant leak from either staple line. Patient should be appearing ill if there is leakage from the bowel. He is afebrile now without any antibiotics. Would continue to observe. Films and CBC in AM. Dr. Gutierrez rounding this weekend. Will keep in close contact with her.
[2018-05-30] MEDS: CHLORASEPTIC MM PRN (00:14)
[2018-05-30] MEDS: D5W/0.45% NACL/KCL 20 MEQ 20 MEQ/1,000 ML BAG IV SCH ×2 (00:14→12:49)
[2018-05-30] MEDS: MORPHINE IV PRN ×2 (01:17→10:38)
[2018-05-30 07:32] LABS: Basophils # (Auto) 0.1 K/mm3 (0.0-0.1); Basophils % (Auto) 0.6 % (0.0-1.8); Eosinophils # (Auto) 0.3 K/mm3 (0.0-0.4); Eosinophils % (Auto) 3.3 % (0.0-4.3); Hematocrit 36.7 % (35.5-45.6); Hemoglobin 12.4 gm/dl (11.8-15.2); Lymphocytes # (Auto) 0.6 K/mm3 (1.2-5.4); Lymphocytes % (Auto) 6.1 % (13.4-35.0); Mean Corpuscular HGB Conc 34 % (32-34); Mean Corpuscular Volume 91 fl (84-94); Monocytes % (Auto) 10.2 % (0.0-7.3); Platelet Count 335 K/mm3 (140-440); Red Blood Count 4.03 M/mm3 (3.65-5.03); Red Cell Distribution Width 15.5 % (13.2-15.2)
[2018-05-30 07:45] LABS: BUN/Creatinine Ratio 13; Blood Urea Nitrogen 9 mg/dL (9-20); Calcium 8.8 mg/dL (8.4-10.2); Hemolysis Index 2
--- NOTE | 2018-05-30 09:56 | XRay Report ---
FINAL REPORT EXAM: XR ABDOMEN 2V HISTORY: f/u passage of contrast TECHNIQUE: 2 views of the abdomen. 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 FINDINGS: Moderate distension of the bowel loops with multiple air-fluid levels identified. Significant pneumoperitoneum noted. No pneumatosis. Previously seen contrast in the stomach is no longer evident. Surgical sutures in the right abdomen. Midline skin jose. There are no suspicious calcifications overlying the renal shadows. Enteric tube is in the stomach. Side hole is near the GE junction. Degenerative changes are present in the spine and hips. Scoliosis. IMPRESSION: Nonspecific moderate distension of the small bowel loops. Findings may represent ileus, enteritis, or incomplete obstruction. Overall distension is similar to prior. Previously seen contrast in the stomach is no longer present. Contrast may have passed or if Gastrogr afin was used, it may be diluted. Advancement of the enteric tube is recommended. Postsurgical changes. Jay level II reporting initiated.
[2018-05-30] MEDS: SODIUM CHLORIDE FLUSH SYRINGE 10 ML IV SCH ×2 (12:50→22:41)
--- NOTE | 2018-05-30 12:57 | Progress Note ---
Assessment and Plan (1) Bowel obstruction Current Visit: Yes Status: Acute Qualifiers: Intestinal obstruction type: other intestinal obstruction Intestinal obstruction extent: partial Qualified Code(s): K56.690 - Other partial intestinal obstruction Plan to address problem: Pt stable. s/p right hemicolectomy with primary anastomosis - 05/26/18 - POD#4. Has been afebrile. HR stable. He has no pain and his abdomen is benign. WBC is normal. He is having bowel function. Abd xray - pneumoperitoneum Discussed patient with Dr. Andre. Clinically patient looks great and his pictur e does not fit with a staple line leak/perforation. Will continue to monitor his vitals, labs, and physical exam. No plans for return to OR at this time as patient is doing well. - continue ambulating - IS - dc NGT and start clear liquids - continue IVF for now. - toradol held - Hb stable - repeat labs in am Please call with questions. Subjective Date of service: 05/30/18 Narrative: Pt seen and examined. No complaints. Pain is minimal. He has been up and walking around. He has had several BMs and is passing flatus. He states his abdominal distension is much improved and his abdomen is at baseline. No f/c, cp, sob. He is hungry. Objective Vital Signs - 12hr 05/30/18 05/30/18 05/30/18 04:39 05:47 06:53 Temperature 99.1 F 98.2 F Pulse Rate 97 H 97 H Respiratory 18 20 Rate Blood Pressure 110/67 113/69 Blood Pressure [Right] O2 Sat by Pulse 95 97 Oximetry 05/30/18 05/30/18 11:11 12:00 Temperature 97.9 F Pulse Rate 93 H 106 H Respiratory 18 Rate Blood Pressure Blood Pressure 99/70 [Right] O2 Sat by Pulse 98 99 Oximetry - General physical appearance Narrative Exam: Gen: AAOx3. NAD ENT: NGT with clear drainage CV: S1, S2+ Resp: even and unlabored Abd: soft, NT, mildly distended. incision c/d/i with jose in place Ext: no c/c/e - Labs 05/30/18 07:07 05/30/18 07:07 Diabetes panel 05/30/18 Range/Units 07:07 Sodium 136 L (137-145) mmol/L Potassium 3.9 (3.6-5.0) mmol/L Chloride 96.5 L (98-107) mmol/L Carbon Dioxide 31 H (22-30) mmol/L BUN 9 (9-20) mg/dL Creatinine 0.7 L (0.8-1.5) mg/dL Glucose 123 H (75-100) mg/dL Calcium 8.8 (8.4-10.2) mg/dL Calcium panel 05/30/18 Range/Units 07:07 Calcium 8.8 (8.4-10.2) mg/dL Pituitary panel 05/30/18 Range/Units 07:07 Sodium 136 L (137-145) mmol/L Potassium 3.9 (3.6-5.0) mmol/L Chloride 96.5 L (98-107) mmol/L Carbon Dioxide 31 H (22-30) mmol/L BUN 9 (9-20) mg/dL Creatinine 0.7 L (0.8-1.5) mg/dL Glucose 123 H (75-100) mg/dL Calcium 8.8 (8.4-10.2) mg/dL Adrenal panel 05/30/18 Range/Units 07:07 Sodium 136 L (137-145) mmol/L Potassium 3.9 (3.6-5.0) mmol/L Chloride 96.5 L (98-107) mmol/L Carbon Dioxide 31 H (22-30) mmol/L BUN 9 (9-20) mg/dL Creatinine 0.7 L (0.8-1.5) mg/dL Glucose 123 H (75-100) mg/dL Calcium 8.8 (8.4-10.2) mg/dL
--- NOTE | 2018-05-30 14:10 | Progress Note ---
Assessment and Plan - Patient Problems (1) Abdominal pain Current Visit: Yes Status: Acute Plan to address problem: Abdominal pain resolved after resolution of small bowel obstruction. NG tube removed today. Patient tolerating clears. Having large bowel movement pain resolved. Anticipate discharge soon. Reevaluate by surgery. (2) Bowel obstruction Current Visit: Yes Status: Acute Qualifiers: Intestinal obstruction type: other intestinal obstruction Intestinal obstruction extent: partial Qualified Code(s): K56.690 - Other partial intestinal obstruction Plan to address problem: Resolve. X-rays obtained after large stool or bowel movement. Patient tolerating medications abdominal pain resolved. (3) Nausea and vomiting Current Visit: Yes Status: Acute History Interval history: Patient feels much better today. Had a large bowel movement after abdominal x- ray. Patient states he felt so much better after bowel movement. Really eat hungry pain has resolved. Hospitalist Physical - Constitutional Vitals: Temp Pulse Resp BP Pulse Ox 97.9 F 106 H 18 99/70 99 05/30/18 12:00 05/30/18 12:00 05/30/18 12:00 05/30/18 12:00 05/30/18 12:00 General appearance: Present: no acute distress - EENT Eyes: Present: PERRL. Absent: irregular pupil, scleral icterus, conjunctival injection, exopthalmos ENT: hearing intact, clear oral mucosa, dentition normal, no hearing decreased, no oropharyngeal erythema, no thrush - Neck Neck: Present: supple, normal ROM. Absent: rigidity, enlarged thyroid, masses or JVD - Respiratory Respiratory: bilateral: CTA - Cardiovascular Rhythm: regular Heart Sounds: Present: S1 & S2 - Extremities Extremities: no ischemia, pulses intact, pulses symmetrical, No edema, normal temperature, normal color Peripheral Pulses: within normal limits - Abdominal General gastrointestinal: soft, other - Integumentary Integumentary: Present: clear, warm, dry - Psychiatric Psychiatric: appropriate mood/affect, intact judgment & insight, cooperative - Neurologic Neurologic: CNII-XII intact, no focal deficits, moves all extremities Results - Labs CBC & Chem 7: 05/30/18 07:07 05/30/18 07:07 Labs: Laboratory Last Values WBC 10.1 K/mm3 (4.5-11.0) 05/30/18 07:07 RBC 4.03 M/mm3 (3.65-5.03) 05/30/18 07:07 Hgb 12.4 gm/dl (11.8-15.2) 05/30/18 07:07 Hct 36.7 % (35.5-45.6) 05/30/18 07:07 MCV 91 fl (84-94) 05/30/18 07:07 MCH 31 pg (28-32) 05/30/18 07:07 MCHC 34 % (32-34) 05/30/18 07:07 RDW 15.5 % (13.2-15.2) H 05/30/18 07:07 Plt Count 335 K/mm3 (140-440) 05/30/18 07:07 Lymph % (Auto) 6.1 % (13.4-35.0) L 05/30/18 07:07 [place] % (Auto) 10.2 % (0.0-7.3) H 05/30/18 07:07 Eos % (Auto) 3.3 % (0.0-4.3) 05/30/18 07:07 Baso % (Auto) 0.6 % (0.0-1.8) 05/30/18 07:07 Lymph # 0.6 K/mm3 (1.2-5.4) L 05/30/18 07:07 [place] # 1.0 K/mm3 (0.0-0.8) H 05/30/18 07:07 Eos # 0.3 K/mm3 (0.0-0.4) 05/30/18 07:07 Baso # 0.1 K/mm3 (0.0-0.1) 05/30/18 07:07 Add Manual Diff Complete 05/26/18 15:32 Total Counted 100 05/26/18 15:32 Seg Neutrophils % 79.8 % (40.0-70.0) H 05/30/18 07:07 Seg Neuts % (Manual) 91.0 % (40.0-70.0) H 05/26/18 15:32 Band Neutrophils % 0 % 05/26/18 15:32 Lymphocytes % (Manual) 5.0 % (13.4-35.0) L 05/26/18 15:32 Reactive Lymphs % (Man) 0 % 05/26/18 15:32 Monocytes % (Manual) 4.0 % (0.0-7.3) 05/26/18 15:32 Eosinophils % (Manual) 0 % (0.0-4.3) 05/26/18 15:32 Basophils % (Manual) 0 % (0.0-1.8) 05/26/18 15:32 Metamyelocytes % 0 % 05/26/18 15:32 Myelocytes % 0 % 05/26/18 15:32 Promyelocytes % 0 % 05/26/18 15:32 Blast Cells % 0 % 05/26/18 15:32 Nucleated RBC % Not Reportable 05/26/18 15:32 Seg Neutrophils # 8.0 K/mm3 (1.8-7.7) H 05/30/18 07:07 Seg Neutrophils # Man 15.7 K/mm3 (1.8-7.7) H 05/26/18 15:32 Band Neutrophils # 0.0 K/mm3 05/26/18 15:32 Lymphocytes # (Manual) 0.9 K/mm3 (1.2-5.4) L 05/26/18 15:32 Abs React Lymphs (Man) 0.0 K/mm3 05/26/18 15:32 Monocytes # (Manual) 0.7 K/mm3 (0.0-0.8) 05/26/18 15:32 Eosinophils # (Manual) 0.0 K/mm3 (0.0-0.4) 05/26/18 15:32 Basophils # (Manual) 0.0 K/mm3 (0.0-0.1) 05/26/18 15:32 Metamyelocytes # 0.0 K/mm3 05/26/18 15:32 Myelocytes # 0.0 K/mm3 05/26/18 15:32 Promyelocytes # 0.0 K/mm3 05/26/18 15:32 Blast Cells # 0.0 K/mm3 05/26/18 15:32 WBC Morphology Not Reportable 05/26/18 15:32 Hypersegmented Neuts Not Reportable 05/26/18 15:32 Hyposegmented Neuts Not Reportable 05/26/18 15:32 Hypogranular Neuts Not Reportable 05/26/18 15:32 Smudge Cells Not Reportable 05/26/18 15:32 Toxic Granulation Not Reportable 05/26/18 15:32 Toxic Vacuolation Not Reportable 05/26/18 15:32 Dohle Bodies Not Reportable 05/26/18 15:32 Pelger-Huet Anomaly Not Reportable 05/26/18 15:32 Elen Rods Not Reportable 05/26/18 15:32 Platelet Estimate Not Reportable 05/26/18 15:32 Clumped Platelets Not Reportable 05/26/18 15:32 Plt Clumps, EDTA Not Reportable 05/26/18 15:32 Large Platelets Not Reportable 05/26/18 15:32 Giant Platelets Not Reportable 05/26/18 15:32 Platelet Satelliting Not Reportable 05/26/18 15:32 Plt Morphology Comment Not Reportable 05/26/18 15:32 RBC Morphology Normal 05/26/18 15:32 Dimorphic RBCs Not Reportable 05/26/18 15:32 Polychromasia Not Reportable 05/26/18 15:32 Hypochromasia Not Reportable 05/26/18 15:32 Poikilocytosis Not Reportable 05/26/18 15:32 Anisocytosis Not Reportable 05/26/18 15:32 Microcytosis Not Reportable 05/26/18 15:32 Macrocytosis Not Reportable 05/26/18 15:32 Spherocytes Not Reportable 05/26/18 15:32 Pappenheimer Bodies Not Reportable 05/26/18 15:32 Sickle Cells Not Reportable 05/26/18 15:32 Target Cells Not Reportable 05/26/18 15:32 Tear Drop Cells Not Reportable 05/26/18 15:32 Ovalocytes Not Reportable 05/26/18 15:32 Helmet Cells Not Reportable 05/26/18 15:32 [place] Bodies Not Reportable 05/26/18 15:32 [place] Rings Not Reportable 05/26/18 15:32 [place] Cells Not Reportable 05/26/18 15:32 Bite Cells Not Reportable 05/26/18 15:32 Crenated Cell Not Reportable 05/26/18 15:32 Elliptocytes Not Reportable 05/26/18 15:32 Acanthocytes (Spur) Not Reportable 05/26/18 15:32 Rouleaux Not Reportable 05/26/18 15:32 Hemoglobin C Crystals Not Reportable 05/26/18 15:32 Schistocytes Not Reportable 05/26/18 15:32 Malaria parasites Not Reportable 05/26/18 15:32 Kash Bodies Not Reportable 05/26/18 15:32 Hem Pathologist Commnt No 05/26/18 15:32 Sodium 136 mmol/L (137-145) L 05/30/18 07:07 Potassium 3.9 mmol/L (3.6-5.0) 05/30/18 07:07 Chloride 96.5 mmol/L (98-107) L 05/30/18 07:07 Carbon Dioxide 31 mmol/L (22-30) H 05/30/18 07:07 Anion Gap 12 mmol/L 05/30/18 07:07 BUN 9 mg/dL (9-20) 05/30/18 07:07 Creatinine 0.7 mg/dL (0.8-1.5) L 05/30/18 07:07 Estimated GFR > 60 ml/min 05/30/18 07:07 BUN/Creatinine Ratio 13 % 05/30/18 07:07 Glucose 123 mg/dL (75-100) H 05/30/18 07:07 Calcium 8.8 mg/dL (8.4-10.2) 05/30/18 07:07 Total Bilirubin 0.80 mg/dL (0.1-1.2) 05/25/18 16:19 AST 20 units/L (5-40) 05/25/18 16:19 ALT 19 units/L (7-56) 05/25/18 16:19 Alkaline Phosphatase 107 units/L (35-129) 05/25/18 16:19 Total Protein 9.2 g/dL (6.3-8.2) H 05/25/18 16:19 Albumin 4.4 g/dL (3.9-5) 05/25/18 16:19 Albumin/Globulin Ratio 0.9 % 05/25/18 16:19 Lipase 7 units/L (13-60) L 05/25/18 16:19 Urine Color Yellow (Yellow) 05/29/18 06:49 Urine Turbidity Clear (Clear) 05/29/18 06:49 Urine pH 8.0 (5.0-7.0) H 05/29/18 06:49 Ur Specific [place] 1.019 (1.003-1.030) 05/29/18 06:49 Urine Protein 100 mg/dl mg/dL (Negative) 05/29/18 06:49 Urine Glucose (UA) Neg mg/dL (Negative) 05/29/18 06:49 Urine Ketones Neg mg/dL (Negative) 05/29/18 06:49 Urine Blood Neg (Negative) 05/29/18 06:49 Urine Nitrite Neg (Negative) 05/29/18 06:49 Urine Bilirubin Neg (Negative) 05/29/18 06:49 Urine Ictotest Positive (Negative) 05/25/18 19:51 Urine Urobilinogen < 2.0 mg/dL (<2.0) 05/29/18 06:49 Ur Leukocyte Esterase Neg (Negative) 05/29/18 06:49 Urine WBC (Auto) < 1.0 /HPF (0.0-6.0) 05/29/18 06:49 Urine RBC (Auto) 3.0 /HPF (0.0-6.0) 05/29/18 06:49 U Epithel Cells (Auto) < 1.0 /HPF (0-13.0) 05/25/18 19:51 Urine Bacteria (Auto) 1+ /HPF (Negative) 05/25/18 19:51 Hyaline Casts 16 /LPF 05/25/18 19:51 Urine Mucus Few /HPF 05/29/18 06:49
[2018-05-31] MEDS: MORPHINE IV PRN ×2 (00:47→21:02)
[2018-05-31 06:02] LABS: Hematocrit 40.6 % (35.5-45.6); Hemoglobin 13.2 gm/dl (11.8-15.2); Mean Corpuscular HGB Conc 33 % (32-34); Mean Corpuscular Volume 92 fl (84-94); Platelet Count 384 K/mm3 (140-440); Red Blood Count 4.43 M/mm3 (3.65-5.03); Red Cell Distribution Width 15.7 % (13.2-15.2)
[2018-05-31 06:06] LABS: BUN/Creatinine Ratio 13; Blood Urea Nitrogen 10 mg/dL (9-20); Hemolysis Index 19
[2018-05-31] MEDS: D5W/0.45% NACL/KCL 20 MEQ 20 MEQ/1,000 ML BAG IV SCH (06:18)
[2018-05-31] MEDS: NACL 0.9% 1000 ML 1,000 ML IV SCH ×2 (10:29→23:04)
[2018-05-31] MEDS: SODIUM CHLORIDE FLUSH SYRINGE 10 ML IV SCH ×2 (10:33→22:00)
--- NOTE | 2018-05-31 12:21 | Progress Note ---
Assessment and Plan - Patient Problems (1) Abdominal pain Current Visit: Yes Status: Acute Plan to address problem: Continues to improve. Pain improved locally. Increased by mouth intake. Still has limited appetite but does not have pain and did have a bowel movement yesterday. (2) Bowel obstruction Current Visit: Yes Status: Acute Qualifiers: Intestinal obstruction type: other intestinal obstruction Intestinal obstruction extent: partial Qualified Code(s): K56.690 - Other partial intestinal obstruction Plan to address problem: Resolve. X-rays obtained after large stool or bowel movement. Patient tolerating medications abdominal pain resolved. (3) Nausea and vomiting Current Visit: Yes Status: Resolved (4) Hyponatremia Current Visit: Yes Status: Acute Plan to address problem: Patient Hospital course complicated today with hyponatremia most likely GI loss. Will check osmolality. Will start patient on normal saline for 3 L. Recheck electrolytes in a.m. History Interval history: Patient continues to improve today. Less pain. Patient continues to pass gas had bowel movement yesterday. Patient tolerating by mouth better. Was able to eat some broth today without difficulty but patient did not eat much. Hospitalist Physical - Constitutional Vitals: Temp Pulse Resp BP Pulse Ox 98.3 F 101 H 17 121/82 99 05/31/18 03:34 05/31/18 03:34 05/31/18 03:34 05/31/18 03:34 05/31/18 03:34 General appearance: Present: no acute distress - EENT Eyes: Present: PERRL, EOM intact ENT: hearing intact, clear oral mucosa, dentition normal - Neck Neck: Present: supple, normal ROM - Respiratory Respiratory effort: normal Respiratory: bilateral: CTA - Cardiovascular Rhythm: regular Heart Sounds: Present: S1 & S2 - Extremities Extremities: no ischemia, pulses intact, pulses symmetrical, No edema, normal temperature, normal color Peripheral Pulses: within normal limits - Abdominal General gastrointestinal: soft, tender, hypoactive bowel sounds - Integumentary Integumentary: Present: clear, warm, dry - Psychiatric Psychiatric: appropriate mood/affect, intact judgment & insight - Neurologic Neurologic: CNII-XII intact, no focal deficits, moves all extremities - Allied Health Allied health notes reviewed: nursing Results - Labs CBC & Chem 7: 05/31/18 05:03 05/31/18 05:03 Labs: Laboratory Last Values WBC 10.1 K/mm3 (4.5-11.0) 05/31/18 05:03 RBC 4.43 M/mm3 (3.65-5.03) 05/31/18 05:03 Hgb 13.2 gm/dl (11.8-15.2) 05/31/18 05:03 Hct 40.6 % (35.5-45.6) 05/31/18 05:03 MCV 92 fl (84-94) 05/31/18 05:03 MCH 30 pg (28-32) 05/31/18 05:03 MCHC 33 % (32-34) 05/31/18 05:03 RDW 15.7 % (13.2-15.2) H 05/31/18 05:03 Plt Count 384 K/mm3 (140-440) 05/31/18 05:03 Lymph % (Auto) 6.1 % (13.4-35.0) L 05/30/18 07:07 [place] % (Auto) 10.2 % (0.0-7.3) H 05/30/18 07:07 Eos % (Auto) 3.3 % (0.0-4.3) 05/30/18 07:07 Baso % (Auto) 0.6 % (0.0-1.8) 05/30/18 07:07 Lymph # 0.6 K/mm3 (1.2-5.4) L 05/30/18 07:07 [place] # 1.0 K/mm3 (0.0-0.8) H 05/30/18 07:07 Eos # 0.3 K/mm3 (0.0-0.4) 05/30/18 07:07 Baso # 0.1 K/mm3 (0.0-0.1) 05/30/18 07:07 Add Manual Diff Complete 05/26/18 15:32 Total Counted 100 05/26/18 15:32 Seg Neutrophils % 79.8 % (40.0-70.0) H 05/30/18 07:07 Seg Neuts % (Manual) 91.0 % (40.0-70.0) H 05/26/18 15:32 Band Neutrophils % 0 % 05/26/18 15:32 Lymphocytes % (Manual) 5.0 % (13.4-35.0) L 05/26/18 15:32 Reactive Lymphs % (Man) 0 % 05/26/18 15:32 Monocytes % (Manual) 4.0 % (0.0-7.3) 05/26/18 15:32 Eosinophils % (Manual) 0 % (0.0-4.3) 05/26/18 15:32 Basophils % (Manual) 0 % (0.0-1.8) 05/26/18 15:32 Metamyelocytes % 0 % 05/26/18 15:32 Myelocytes % 0 % 05/26/18 15:32 Promyelocytes % 0 % 05/26/18 15:32 Blast Cells % 0 % 05/26/18 15:32 Nucleated RBC % Not Reportable 05/26/18 15:32 Seg Neutrophils # 8.0 K/mm3 (1.8-7.7) H 05/30/18 07:07 Seg Neutrophils # Man 15.7 K/mm3 (1.8-7.7) H 05/26/18 15:32 Band Neutrophils # 0.0 K/mm3 05/26/18 15:32 Lymphocytes # (Manual) 0.9 K/mm3 (1.2-5.4) L 05/26/18 15:32 Abs React Lymphs (Man) 0.0 K/mm3 05/26/18 15:32 Monocytes # (Manual) 0.7 K/mm3 (0.0-0.8) 05/26/18 15:32 Eosinophils # (Manual) 0.0 K/mm3 (0.0-0.4) 05/26/18 15:32 Basophils # (Manual) 0.0 K/mm3 (0.0-0.1) 05/26/18 15:32 Metamyelocytes # 0.0 K/mm3 05/26/18 15:32 Myelocytes # 0.0 K/mm3 05/26/18 15:32 Promyelocytes # 0.0 K/mm3 05/26/18 15:32 Blast Cells # 0.0 K/mm3 05/26/18 15:32 WBC Morphology Not Reportable 05/26/18 15:32 Hypersegmented Neuts Not Reportable 05/26/18 15:32 Hyposegmented Neuts Not Reportable 05/26/18 15:32 Hypogranular Neuts Not Reportable 05/26/18 15:32 Smudge Cells Not Reportable 05/26/18 15:32 Toxic Granulation Not Reportable 05/26/18 15:32 Toxic Vacuolation Not Reportable 05/26/18 15:32 Dohle Bodies Not Reportable 05/26/18 15:32 Pelger-Huet Anomaly Not Reportable 05/26/18 15:32 Elen Rods Not Reportable 05/26/18 15:32 Platelet Estimate Not Reportable 05/26/18 15:32 Clumped Platelets Not Reportable 05/26/18 15:32 Plt Clumps, EDTA Not Reportable 05/26/18 15:32 Large Platelets Not Reportable 05/26/18 15:32 Giant Platelets Not Reportable 05/26/18 15:32 Platelet Satelliting Not Reportable 05/26/18 15:32 Plt Morphology Comment Not Reportable 05/26/18 15:32 RBC Morphology Normal 05/26/18 15:32 Dimorphic RBCs Not Reportable 05/26/18 15:32 Polychromasia Not Reportable 05/26/18 15:32 Hypochromasia Not Reportable 05/26/18 15:32 Poikilocytosis Not Reportable 05/26/18 15:32 Anisocytosis Not Reportable 05/26/18 15:32 Microcytosis Not Reportable 05/26/18 15:32 Macrocytosis Not Reportable 05/26/18 15:32 Spherocytes Not Reportable 05/26/18 15:32 Pappenheimer Bodies Not Reportable 05/26/18 15:32 Sickle Cells Not Reportable 05/26/18 15:32 Target Cells Not Reportable 05/26/18 15:32 Tear Drop Cells Not Reportable 05/26/18 15:32 Ovalocytes Not Reportable 05/26/18 15:32 Helmet Cells Not Reportable 05/26/18 15:32 [place] Bodies Not Reportable 05/26/18 15:32 [place] Rings Not Reportable 05/26/18 15:32 [place] Cells Not Reportable 05/26/18 15:32 Bite Cells Not Reportable 05/26/18 15:32 Crenated Cell Not Reportable 05/26/18 15:32 Elliptocytes Not Reportable 05/26/18 15:32 Acanthocytes (Spur) Not Reportable 05/26/18 15:32 Rouleaux Not Reportable 05/26/18 15:32 Hemoglobin C Crystals Not Reportable 05/26/18 15:32 Schistocytes Not Reportable 05/26/18 15:32 Malaria parasites Not Reportable 05/26/18 15:32 Kash Bodies Not Reportable 05/26/18 15:32 Hem Pathologist Commnt No 05/26/18 15:32 Sodium 131 mmol/L (137-145) L 05/31/18 05:03 Potassium 4.3 mmol/L (3.6-5.0) 05/31/18 05:03 Chloride 95.6 mmol/L (98-107) L 05/31/18 05:03 Carbon Dioxide 25 mmol/L (22-30) 05/31/18 05:03 Anion Gap 15 mmol/L 05/31/18 05:03 BUN 10 mg/dL (9-20) 05/31/18 05:03 Creatinine 0.8 mg/dL (0.8-1.5) 05/31/18 05:03 Estimated GFR > 60 ml/min 05/31/18 05:03 BUN/Creatinine Ratio 13 % 05/31/18 05:03 Glucose 111 mg/dL (75-100) H 05/31/18 05:03 Calcium 9.0 mg/dL (8.4-10.2) 05/31/18 05:03 Total Bilirubin 0.80 mg/dL (0.1-1.2) 05/25/18 16:19 AST 20 units/L (5-40) 05/25/18 16:19 ALT 19 units/L (7-56) 05/25/18 16:19 Alkaline Phosphatase 107 units/L (35-129) 05/25/18 16:19 Total Protein 9.2 g/dL (6.3-8.2) H 05/25/18 16:19 Albumin 4.4 g/dL (3.9-5) 05/25/18 16:19 Albumin/Globulin Ratio 0.9 % 05/25/18 16:19 Lipase 7 units/L (13-60) L 05/25/18 16:19 Urine Color Yellow (Yellow) 05/29/18 06:49 Urine Turbidity Clear (Clear) 05/29/18 06:49 Urine pH 8.0 (5.0-7.0) H 05/29/18 06:49 Ur Specific [place] 1.019 (1.003-1.030) 05/29/18 06:49 Urine Protein 100 mg/dl mg/dL (Negative) 05/29/18 06:49 Urine Glucose (UA) Neg mg/dL (Negative) 05/29/18 06:49 Urine Ketones Neg mg/dL (Negative) 05/29/18 06:49 Urine Blood Neg (Negative) 05/29/18 06:49 Urine Nitrite Neg (Negative) 05/29/18 06:49 Urine Bilirubin Neg (Negative) 05/29/18 06:49 Urine Ictotest Positive (Negative) 05/25/18 19:51 Urine Urobilinogen < 2.0 mg/dL (<2.0) 05/29/18 06:49 Ur Leukocyte Esterase Neg (Negative) 05/29/18 06:49 Urine WBC (Auto) < 1.0 /HPF (0.0-6.0) 05/29/18 06:49 Urine RBC (Auto) 3.0 /HPF (0.0-6.0) 05/29/18 06:49 U Epithel Cells (Auto) < 1.0 /HPF (0-13.0) 05/25/18 19:51 Urine Bacteria (Auto) 1+ /HPF (Negative) 05/25/18 19:51 Hyaline Casts 16 /LPF 05/25/18 19:51 Urine Mucus Few /HPF 05/29/18 06:49
--- NOTE | 2018-05-31 15:56 | Progress Note ---
Assessment and Plan (1) Bowel obstruction Current Visit: Yes Status: Acute Qualifiers: Intestinal obstruction type: other intestinal obstruction Intestinal obstruction extent: partial Qualified Code(s): K56.690 - Other partial intestinal obstruction Plan to address problem: Pt stable. s/p right hemicolectomy with primary anastomosis - 05/26/18 - POD#5. Has been afebrile. HR stable. He has no pain and his abdomen is benign. WBC is normal. He is having bowel function - continue ambulating - IS - adv to full liquids-> soft diet for breakfast - Sodium low -> continue IVF for now. - toradol held - Hb stable - repeat BMP in am Likely dc to home tomorrow. Please call with questions. Subjective Date of service: 05/31/18 Narrative: Pt seen and examined. No complaints. Tolerating clear liquids without n/v. Having BMs and flatus. He is ambulating on his own. His appetite is slowly returning. He denies pain. NO f/c Objective Vital Signs - 12hr 05/31/18 05/31/18 07:51 13:09 Temperature 98.1 F 98.9 F Pulse Rate 87 100 H Respiratory 14 14 Rate Blood Pressure 109/76 111/79 O2 Sat by Pulse 99 100 Oximetry - General physical appearance Narrative Exam: Gen: AAOx3. NAD CV: s1, s2+ resp; even and unlabored Abd: soft, NT, ND. incision c/d/i. Tayla in place Ext: no c/c/e - Labs 05/31/18 05:03 05/31/18 05:03 Diabetes panel 05/31/18 Range/Units 05:03 Sodium 131 L (137-145) mmol/L Potassium 4.3 (3.6-5.0) mmol/L Chloride 95.6 L (98-107) mmol/L Carbon Dioxide 25 (22-30) mmol/L BUN 10 (9-20) mg/dL Creatinine 0.8 (0.8-1.5) mg/dL Glucose 111 H (75-100) mg/dL Calcium 9.0 (8.4-10.2) mg/dL Calcium panel 05/31/18 Range/Units 05:03 Calcium 9.0 (8.4-10.2) mg/dL Pituitary panel 05/31/18 Range/Units 05:03 Sodium 131 L (137-145) mmol/L Potassium 4.3 (3.6-5.0) mmol/L Chloride 95.6 L (98-107) mmol/L Carbon Dioxide 25 (22-30) mmol/L BUN 10 (9-20) mg/dL Creatinine 0.8 (0.8-1.5) mg/dL Glucose 111 H (75-100) mg/dL Calcium 9.0 (8.4-10.2) mg/dL Adrenal panel 05/31/18 Range/Units 05:03 Sodium 131 L (137-145) mmol/L Potassium 4.3 (3.6-5.0) mmol/L Chloride 95.6 L (98-107) mmol/L Carbon Dioxide 25 (22-30) mmol/L BUN 10 (9-20) mg/dL Creatinine 0.8 (0.8-1.5) mg/dL Glucose 111 H (75-100) mg/dL Calcium 9.0 (8.4-10.2) mg/dL
[2018-05-31] MEDS: ZOFRAN IV PRN (21:03)
[2018-06-01 07:30] VITALS: BP 120/82
[2018-06-01 07:53] LABS: BUN/Creatinine Ratio 11; Blood Urea Nitrogen 8 mg/dL (9-20); Calcium 8.9 mg/dL (8.4-10.2); Hemolysis Index 8
--- NOTE | 2018-06-01 09:35 | Discharge Summary ---
Providers - Providers Date of Admission: 05/25/18 23:43 Attending physician: NISREEN HOUSTON MD 05/25/18 23:58 Consult to Physician [CONS] Stat Comment: Case discussed with Dr. Andre. Consult discussed Consulting Provider: LEE ANDRE Physician Instructions: General Surgery Dr. Andre Reason For Exam: SBO Primary care physician: ROSA MCDONALD Hospitalization Reason for admission: SBO Condition: Stable Hospital course: 42-year-old man with no medical history comes emergency room with complaints of abdominal pain. Pain is in the right lower quadrant which started 2 months ago, intermittent every 5 minutes, sharp, intensity 8/10, no radiation, he reports some bloating but has fluctuance and also belching. He reported assocaited na usea and vomiting in the last two days but no BM for the last 2 and half days Cannot identify exacerbating factors, better with pain medication given in the emergency room. Admits to nausea vomiting, no bowel movements. Patient underwent right hemicolectomy with primary anastomosis AND Tumor resection and was discharged on day 6 as he was tolerating diet then, findings were discussed with patient and family per his recommendation. He was recommended to follow with Surgery outpatient for re-evaluation and pathology findings discussion. SBO Secondary to Tumor- S/P right hemicolectomy with primary anastomosis Leukocytosis- possible reactive. Peritoneal Irritation. Mass. Fever Disposition: TO HOME OR SELFCARE Time spent for discharge: 35mins Core Measure Documentation - Palliative Care Palliative Care/ Comfort Measures: Not Applicable - Core Measures Any of the following diagnoses?: none Exam - Physical Exam Narrative exam: General Appearance: The patient lying in bed, HEENT: Normocephalic, atraumatic. Pupils equally round and reactive to light, EOMI, no sclericterus or JVD or thyromegaly or nodule. no carotid bruit, mucous membranes moist, no exudate or erythema. Heart: S1-S2, regular is rhythm Lungs: Clear to auscultation bilaterally, breathing comfortable Abdomen: Tender at surgical site. Positive bowel sound. Extremities: No edema cyanosis clubbing Skin: no rash, nodule, warm and dry Neuro: cranial nerves 2-12 intact, speech is fluent, motor/sensory intact - Constitutional Vitals: Temp Pulse Resp BP Pulse Ox 98.2 F 102 H 20 120/82 100 06/01/18 07:00 06/01/18 07:00 06/01/18 07:00 06/01/18 07:00 06/01/18 07:00 Plan Activity: advance as tolerated, fall precautions Diet: advance as tolerated (soft diet for a 5 days then advance) Wound: per your surgeon's advice Follow up with: ROSA MCDONALD MD [Primary Care Provider] - 3-5 Days LEE ANDRE MD [Staff Physician] - 7 Days Prescriptions: Acetaminophen [Acetaminophen TAB] 650 mg PO Q4H PRN #14 tablet PRN Reason: Pain MILD(1-3)/Fever >100.5/HINSON
--- NOTE | 2018-06-01 10:18 | Progress Note ---
Assessment and Plan - Patient Problems (1) Bowel obstruction Current Visit: Yes Status: Acute Qualifiers: Intestinal obstruction type: other intestinal obstruction Intestinal obstruction extent: partial Qualified Code(s): K56.690 - Other partial intestinal obstruction Plan to address problem: Pt stable. s/p right hemicolectomy with primary anastomosis - 05/26/18 - POD#6. Pt looks great. Tolerating diet. Ok to d/c home. - continue ambulating - Diet as tolerated - May shower. Pat dry incision - no heavy lifting or strenuous activity - f/u in 7-10 days. Please call with questions. Subjective Date of service: 06/01/18 Patient Reports: Positive: no new complaints, feels better Objective Vital Signs - 12hr 06/01/18 06/01/18 06/01/18 00:38 04:31 07:00 Temperature 98.7 F 97.7 F 98.2 F Pulse Rate 87 97 H 102 H Respiratory 17 16 20 Rate Blood Pressure 113/74 105/72 120/82 O2 Sat by Pulse 97 98 100 Oximetry - General physical appearance no distress, no pain, other (smiling) - Eyes normal occular movement - Respiratory normal expansion, normal respiratory effort - Abdomen soft, not tender, bowel sounds hypoactive, not distended, not guarding, not rigid, surgical scars (C/D/I) - Integumentary no rash, no growths, no abnormal pigmentation, other (mild bruising noted on inferior aspect of incision) - Psychiatric oriented to time, oriented to person, oriented to place, speech is normal, memory intact - Labs 05/31/18 05:03 06/01/18 07:18 Diabetes panel 06/01/18 Range/Units 07:18 Sodium 132 L (137-145) mmol/L Potassium 4.2 (3.6-5.0) mmol/L Chloride 99.2 (98-107) mmol/L Carbon Dioxide 20 L (22-30) mmol/L BUN 8 L (9-20) mg/dL Creatinine 0.7 L (0.8-1.5) mg/dL Glucose 90 (75-100) mg/dL Calcium 8.9 (8.4-10.2) mg/dL Calcium panel 06/01/18 Range/Units 07:18 Calcium 8.9 (8.4-10.2) mg/dL Pituitary panel 06/01/18 Range/Units 07:18 Sodium 132 L (137-145) mmol/L Potassium 4.2 (3.6-5.0) mmol/L Chloride 99.2 (98-107) mmol/L Carbon Dioxide 20 L (22-30) mmol/L BUN 8 L (9-20) mg/dL Creatinine 0.7 L (0.8-1.5) mg/dL Glucose 90 (75-100) mg/dL Calcium 8.9 (8.4-10.2) mg/dL Adrenal panel 06/01/18 Range/Units 07:18 Sodium 132 L (137-145) mmol/L Potassium 4.2 (3.6-5.0) mmol/L Chloride 99.2 (98-107) mmol/L Carbon Dioxide 20 L (22-30) mmol/L BUN 8 L (9-20) mg/dL Creatinine 0.7 L (0.8-1.5) mg/dL Glucose 90 (75-100) mg/dL Calcium 8.9 (8.4-10.2) mg/dL
== END 2018-06-01 12:21 | disposition home or self-care (01) | DRG 329 ==
LOC: ED 14:39 → 3B-SURG 23:43
PROVIDERS: ADMIT Internal Medicine; ATTEND Internal Medicine
PROC: 0D9670Z Drainage of Stomach with Drainage Device, Via Natural or Artificial Opening (ICD-10-PCS; 2018-05-25)
PROC: 0DTF0ZZ Resection of Right Large Intestine, Open Approach (ICD-10-PCS; principal; 2018-05-26)
PROC: 0DBN0ZZ Excision of Sigmoid Colon, Open Approach (ICD-10-PCS; 2018-05-26)
PROC: 0DBU0ZZ Excision of Omentum, Open Approach (ICD-10-PCS; 2018-05-26)
PROC: 0D980ZZ Drainage of Small Intestine, Open Approach (ICD-10-PCS; 2018-05-26)
DX: D49.0 Neoplasm of unspecified behavior of digestive system (principal); K65.9 Peritonitis, unspecified; E87.1 Hypo-osmolality and hyponatremia; F10.10 Alcohol abuse, uncomplicated; Y90.0 Blood alcohol level of less than 20 mg/100 ml; K66.8 Other specified disorders of peritoneum; F17.200 Nicotine dependence, unspecified, uncomplicated; K21.9 Gastro-esophageal reflux disease without esophagitis; Z82.49 Family history of ischemic heart disease and other diseases of the circulatory system; Z88.2 Allergy status to sulfonamides
CPT/HCPCS: 36415; 71046; 74018; 74019; 74176; 74177; 80048; 80053; 81001; 82271; 83690; 85007; 85025; 85027; 87040; 88307; 88309; 88312; 94760; G0378; J0330; J0690; J1100; J1170; J1200; J1650; J1885; J2270; J2370; J2405; J2543; J2704; J3010; J7030; J7120; Q9967